=== PATIENT | female | born 1990 | race Caucasian/White ===

== ENCOUNTER 2017-05-25 12:09 | Emergency (ER) | payer OTHER ==
[2017-05-25] MEDS ORDERED: FLUORESCEIN SODIUM 0.6 MG/WRAP ONE (13:44)
[2017-05-25] MEDS ORDERED: TETRACAINE HCL 0.5% 2ML OPTH ONE (13:44)
--- NOTE | 2017-05-25 14:07 | EDPHYS ---
Physician Documentation [facility] Name: Alexa Sal Age: 26 yrs Sex: Female : 1990 Arrival Date: 05/25/2017 Time: 12:15 Bed 12 Private MD: Rolan Wolff HPI: 05/25 13:36 This 26 yrs old Female presents to ER via Ambulatory with complaints of eren Redness of Eye. 13:39 This 26 yrs old Female presents to ER via Ambulatory with complaints of eren Redness of Eye. 13:36 The patient is experiencing matting or discharge, pain, redness, tearing. Onset: The eren symptoms/episode began/occurred 3 day(s) ago. Duration: the symptoms are continuous. Aggravated by blinking, closing eye, Alleviated by nothing. Associated signs and symptoms: Pertinent positives: None. Pertinent negatives: None. Severity of symptoms: At their worst the symptoms were. The patient has not experienced similar symptoms in the past. CLAIM CLERK: 12:19 LMP 11/14/2016 tw2 Historical: - Allergies: 17:52 Toradol; iw - Immunization history:: Adult Immunizations up to date. - Family history:: not pertinent. - Social history:: Smoking status: Patient uses tobacco products. ROS: 13:36 Constitutional: Negative for fever, chills, and weight loss, ENT: Negative for injury, eren pain, and discharge, Neck: Negative for injury, pain, and swelling, Cardiovascular: Negative for chest pain, palpitations, and edema, Respiratory: Negative for shortness of breath, cough, wheezing, and pleuritic chest pain, Abdomen/GI: Negative for abdominal pain, nausea, vomiting, diarrhea, and constipation, Back: Negative for injury and pain, : Negative for injury, bleeding, discharge, and swelling, MS/Extremity: Negative for injury and deformity, Skin: Negative for injury, rash, and discoloration, Neuro: Negative for headache, weakness, numbness, tingling, and seizure, Psych: Negative for depression, anxiety, suicide ideation, homicidal ideation, and hallucinations, Allergy/Immunology: Negative for hives, rash, and allergies, Endocrine: Negative for neck swelling, polydipsia, polyuria, polyphagia, and marked weight changes, Hematologic/Lymphatic: Negative for swollen nodes, abnormal bleeding, and unusual bruising. 13:36 Eyes: Positive for discharge, matting, pain. Exam: 13:36 Constitutional: This is a well developed, well nourished patient who is awake, alert, eren and in no acute distress. Head/Face: Normocephalic, atraumatic. ENT: Nares patent. No nasal discharge, no septal abnormalities noted. Tympanic membranes are normal and external auditory canals are clear. Oropharynx with no redness, swelling, or masses, exudates, or evidence of obstruction, uvula midline. Mucous membranes moist. Neck: Trachea midline, no thyromegaly or masses palpated, and no cervical lymphadenopathy. Supple, full range of motion without nuchal rigidity, or vertebral point tenderness. No Meningismus. Chest/axilla: Normal chest wall appearance and motion. Nontender with no deformity. No lesions are appreciated. Cardiovascular: Regular rate and rhythm with a normal S1 and S2. No gallops, murmurs, or rubs. Normal PMI, no JVD. No pulse deficits. Respiratory: Lungs have equal breath sounds bilaterally, clear to auscultation and percussion. No rales, rhonchi or wheezes noted. No increased work of breathing, no retractions or nasal flaring. Abdomen/GI: Soft, non-tender, with normal bowel sounds. No distension or tympany. No guarding or rebound. No evidence of tenderness throughout. Back: No spinal tenderness. No costovertebral tenderness. Full range of motion. Female : Normal external genitalia. Skin: Warm, dry with normal turgor. Normal color with no rashes, no lesions, and no evidence of cellulitis. MS/ Extremity: Pulses equal, no cyanosis. Neurovascular intact. Full, normal range of motion. Neuro: Awake and alert, GCS 15, oriented to person, place, time, and situation. Cranial nerves II-XII grossly intact. Motor strength 5/5 in all extremities. Sensory grossly intact. Cerebellar exam normal. Normal gait. Psych: Awake, alert, with orientation to person, place and time. Behavior, mood, and affect are within normal limits. 13:36 Eyes: Periorbital structures: appear normal, Pupils: no acute changes, equal, round, and reactive to light and accomodation, Extraocular movements: intact throughout, Conjunctiva: injected, Corneas: are normal, Sclera: injected, Nystagmus: is not appreciated, no acute changes. 13:59 Eyes: Anterior chamber: normal, Lids and lashes: appear normal, on the right. [facility] Vital Signs: 12:19 BP 124 / 80; Pulse 82; Resp 17; Temp 98; Pulse Ox 99% on R/A; Weight 72.57 kg (R); tw2 Height 5 ft. 7 in. (170.18 cm) (R); Pain 6/10; 12:19 Body Mass Index 25.06 (72.57 kg, 170.18 cm) tw2 MDM: 12:39 Patient medically screened. [facility] 13:36 Data reviewed: vital signs, nurses notes. [facility] 05/25 13:36 Order name: Eye Tray; Complete Time: 13:45 [facility] 05/25 13:36 Order name: Fluoresene Opth strip; Complete Time: 13:45 [facility] Administered Medications: 14:00 Drug: Tetracaine Drops 0.5 % 1 drops Route: Ophthalmic; Site: right eye; iw 14:06 Not Given (Duplicate Order): Garamycin Ointment 0.3 % 0.5 inches Ophthalmic once; Right [facility] Eye 14:20 Drug: Tobramycin Ointment (0.3 %) 1 inches Route: Ophthalmic; Site: right eye; iw Disposition: 05/25/17 14:07 Discharged to Home. Impression: Conjunctivitis. - Condition is Stable. - Discharge Instructions: Conjunctivitis (Viral and Bacterial). - Prescriptions for Tylenol- Codeine #3 300-30 mg Oral Tablet - take 2 tablets by ORAL route every 6 hours As needed; 20 tablet. tobramycin 0.3 % Ophthalmic drops - instill 2 drop by OPHTHALMIC route every 4 hours; 10 milliliter. - Medication Reconciliation Form, Thank You Letter, Antibiotic Education, Prescription Opioid Use form. - Follow up: Private Physician; When: 2 - 3 days; Reason: Recheck today's complaints, Continuance of care, Re-evaluation by your physician. Follow up: Gissel Bal; When: 2 - 3 days; Reason: Recheck today's complaints, Re-evaluation by your physician. - Problem is new. - Symptoms have improved. Signatures: Rolan Luis MD MD cha Williams, Irene, RN RN iw
--- NOTE | 2017-05-25 14:07 | ER ---
Nurse's Notes [facility] Name: Alexa Sal Age: 26 yrs Sex: Female : 1990 Arrival Date: 05/25/2017 Time: 12:15 Bed 12 Private MD: Diagnosis: Conjunctivitis Presentation: 05/25 12:17 Presenting complaint: Patient states: about a week ago i had pink eye on the left, now tw2 it seems that it moved to the right, eye wanted me to see an detailer thought maybe my cornea could be scratched on the left, but now its my right eye and it feels like something is behind it, i am , 4 1/2 months. Transition of care: patient was not received from another setting of care. Onset of symptoms was May 25, 2017. Care prior to arrival: None. 12:17 Method Of Arrival: Ambulatory tw2 12:17 Acuity: SULEIMAN 4 tw2 Triage Assessment: 14:00 General: Appears in no apparent distress. iw 14:00 General: Behavior is calm. iw MARKETING SUPPORT ASSISTANT: 12:19 LMP 11/14/2016 tw2 Historical: - Allergies: 17:52 Toradol; iw - Immunization history:: Adult Immunizations up to date. - Family history:: not pertinent. - Social history:: Smoking status: Patient uses tobacco products. Screenin:00 Abuse screen: Denies threats or abuse. Denies injuries from another. Nutritional iw screening: No deficits noted. Tuberculosis screening: No symptoms or risk factors identified. Fall Risk None identified. Assessment: 14:00 General: Appears in no apparent distress. Behavior is calm, cooperative. Pain: iw Complains of pain in right eye. Neuro: Level of Consciousness is awake, alert, obeys commands, Oriented to person, place, time, situation, Moves all extremities. Cardiovascular: Patient's skin is warm and dry. Respiratory: Respiratory effort is even, unlabored. EENT: Sclera/Cornea are reddened in outer aspect of conjuctiva of right eye and inner aspect of conjuctiva of right eye. Derm: Skin is pink, warm \T\ dry. normal. Musculoskeletal: Range of motion: intact in all extremities. Vital Signs: 12:19 BP 124 / 80; Pulse 82; Resp 17; Temp 98; Pulse Ox 99% on R/A; Weight 72.57 kg (R); tw2 Height 5 ft. 7 in. (170.18 cm) (R); Pain 6/10; 12:19 Body Mass Index 25.06 (72.57 kg, 170.18 cm) tw2 ED Course: 12:15 Patient arrived in ED. mr 12:19 Triage completed. tw2 12:39 Rolan Luis MD is Attending Physician. [facility] 13:17 Addie Pena, RN is Primary Nurse. iw 14:00 Arm band placed on. iw 14:00 Patient has correct armband on for positive identification. iw 14:07 Gissel Bal MD is Referral Physician. [facility] 14:15 Assist provider with eye exam of right eye. using fluorescein stain, Performed by Rolan Luis MD Patient tolerated well. Patient did not have IV access during this emergency room visit. Administered Medications: 14:00 Drug: Tetracaine Drops 0.5 % 1 drops Route: Ophthalmic; Site: right eye; iw 14:06 Not Given (Duplicate Order): Garamycin Ointment 0.3 % 0.5 inches Ophthalmic once; Right eren Eye 14:20 Drug: Tobramycin Ointment (0.3 %) 1 inches Route: Ophthalmic; Site: right eye; iw Outcome: 14:07 Discharge ordered by . [facility] 14:26 Discharged to home ambulatory, with family. 14:26 Condition: good 14:26 Discharge instructions given to patient, Instructed on discharge instructions, follow up and referral plans. medication usage, Demonstrated understanding of instructions, follow-up care, medications, Prescriptions given X 1. 14:26 Patient left the ED. iw Signatures: Rolan Luis MD MD cha Rivera, Maria mr Addie Pena, RN RN Lien Awad RN RN tw2
[2017-05-25] MEDS ORDERED: TOBRAMYCIN SULF 0.3% OPTH OINT OPTH ONE (14:15)
== END 2017-05-25 14:26 | disposition home or self-care (01) ==
LOC: ER 12:09
DX: H10.9 Unspecified conjunctivitis (principal); Z88.6 Allergy status to analgesic agent
CPT/HCPCS: 99283

== ENCOUNTER 2019-11-27 13:05 | Emergency (ER) | payer OTHER, SELFPAY ==
--- OUTSIDE RECORDS SUMMARY | 2019-11-27 13:12 | XMS REPORT | Clinical Summary ---
:1990 Author Organization [facility] Distr ict Address [facility] [place] [address] Care Team Providers Name Role Phone MD Juan Primary Care Provider Allergies No Known Allergies Medications Medication Sig Dispensed Refills Start Date End Date Status vitamin Take by mouth. 0 Active tablet FLUoxetine (PROZAC) Take by mouth. 0 09/24/2017 Active 20 mg capsule terconazole (TERAZOL Insert 0 09/22/2017 Active 7) 0.4 % vaginal vaginally. cream methadone (DOLOPHINE) Take 20 mg by 0 Active 10 mg tablet mouth daily. guaiFENesin SR Take 1 tablet 20 tablet 0 10/13/2017 Active (MUCINEX) 600 mg by mouth 2 extended release times daily. tabletIndications: Common cold throat (CEPACOL SORE 1 Lozenge by 18 Lozenge 0 10/13/2017 Active THROAT) 15-3.6 mg Mucous Membrane LozgIndications: route as needed Common cold for Pain. ibuprofen (MOTRIN) Take 1 tablet 60 tablet 0 10/24/2017 Active 800 mg by mouth every tabletIndications: 8 hours as Vaginal delivery needed for Pain. naproxen (NAPROSYN) Take 1 tablet 30 tablet 0 09/19/2019 Active 500 mg by mouth 2 tabletIndications: times daily Low back pain with (with meals). bilateral sciatica, unspecified back pain laterality, unspecified chronicity metroNIDAZOLE Take 1 tablet 14 tablet 0 09/19/2019 09/26/2019 (FLAGYL) 500 mg by mouth 2 tabletIndications: times daily for Vaginitis and 7 days. vulvovaginitis fluconazole Take 1 tablet 1 tablet 0 09/19/2019 09/19/2019 Ex pired (DIFLUCAN) 150 mg by mouth once tabletIndications: for 1 dose. 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 018 Encounters Date Type Specialty Care Team Description 10/03/2019 Telephonic Encounter Family Practice Meng Martinez, Armando reen for sexually MD transmitted dis eases (Primary Dx) 09/19/2019 Telephonic Encounter Family Practice Nusrat Milton Vag initis and vulvovaginitis (Primary Dx); R, PA Screen for sexually transmitted diseases ; Meng Martinez, Low back pain with bilateral sciatica, unspecified back pain laterality, unspecified chronicity 09/19/2019 Orders Only Family Practice Meng Martinez MD after 11/26/2018 Family History Medical History Relation Name Comments ADD / ADHD Daughter Diabetes Maternal Grandfather Hypertension Maternal Grandmother Stroke Maternal Grandmother Psychiatry Mother Alcohol/Drug Paternal Grandfather Alcohol/Drug Paternal Grandmother Psychiatry Sister Relation Name Status Comments Daughter Alive Father Alive Maternal Grandfather Alive Maternal Grandmother Alive Mother Alive Paternal Grandfather Paternal Grandmother Sister Alive Social History Tobacco Use Types Packs/Day Years Used Date Current Every Day Smoker Cigarettes Smokeless Tobacco: Never Used Tobacco Cessation: Ready to Quit: No; Co unseling Given: No Alcohol Use Drinks/Week oz/Week Comments No Food Insecurity Answer Date Recorded Within the past 12 months, you worried that your food would Never true 10/13/2017 run out before you got money to buy more. Within the past 12 months, the food you bought just didn't N ever true 10/13/2017 last and you didn't have money to get more. Sex Assigned at Date Recorded Not on file Job Start Date Occupation Industry Not on file Not on file Not on file Travel History Travel Start Travel End No recent travel history available. Last Filed Vital Signs Not on file Plan of Treatment Health Maintenance Due Date Last Done Comments IMM Influenza Seasonal Nov to April (>/= 19 yrs) 11/16/2019 Cervical Cancer Scrn (3 Yrs) 05/21/2020 05/21/2017 Procedures Procedure Name Priority Date/Time Associated Diagnosis Comme nts CHLAM/GC DNA AMPLI Routine 10/17/2019 1:50 PM Screen for sexu ally Results for this CDT transmitted diseases procedu re are in the results section. HEPATITIS PANEL Routine 10/17/2019 10:30 AM Screen for sexuall y Results for this CDT transmitted diseases procedu re are in the results section. SYPHILIS SCREEN FOR Routine 10/17/2019 10:30 AM Screen for sex ually Results for this INFECTION CDT transmitted diseases procedu re are in the results section. HIV AG/AB COMBO Routine 10/17/2019 10:30 AM Screen for sexuall y Results for this ROUTINE SCREENING CDT transmitted diseases pr ocedure are in the results section. after 11/26/2018 Results Chlam/Gc DNA Ampli (10/17/2019 1:50 PM CDT) Pathologist Sig nature Chlamydia trachomatis Negative Negative [facility] N. gonorrhoeae Negative Negative [facility] Specimen Urine - Voided, urine Narrative Performed At This test utilizes [employer] Aptima Combo 2 Assay for ta rget [facility] amplification of rRNA for the qualitative detection of Chlamydia trachomatis and Neisseria gonorrhoeae. Performing Organization Address [facility] Phone Number [facility] [address] [place] [address] Syphilis Screen for Infection (10/17/2019 10:30 AM CDT) Pathologist Sig nature TPA Negative Negative, Equivocal [facility] Final Report Negative Negative [facility] Specimen Blood Performing Organization Address [facility] Phone Number [facility] [address] [place] [address] [phone] HIV Ag/Ab Combo Routine Screening (10/17/2019 10:30 AM CDT) Pathologist Sig nature HIV Ag/Ab Combo Negative Negative [facility] Specimen Blood Performing Organization Address [facility] Phone Number [facility] [address] [place] [address] Hepatitis Panel (10/17/2019 10:30 AM CDT) Pathologist Sig nature Hepatitis C Virus (HCV) Negative Negative [facility] RY Antibody Hep B Surface Ag Negative Negative [facility] Hep A Vir Ab IgM Negative Negative [facility] Hep B Core Ab IgM Negative Negative [facility] Specimen Blood Performing Organization Address City/State/Zipcode Phone Number [facility] [address] [place] [address] after 11/26/2018 Insurance Payer Benefit Plan / Subscriber ID Effective Dates Phone Addre ss Type Group HOMELESS MOJGAN HOMELESS MOJGAN xxxxxxx 2019- [phone] 25 25 [address] [place] [address] [phone] (Work) Alexa Brewer Self 1990 [address] (Home) [place], [place] [phone] (Work) Advance Directives Code Status Date Activated Date Inactivated Comments Full Code 10/22/2017 11:10 AM 10/24/2017 5:40 PM Full Code 10/21/2017 4:25 PM 10/22/2017 11:10 AM Full Code 10/19/2017 7:31 PM 10/20/2017 12:09 AM
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
--- OUTSIDE RECORDS SUMMARY | 2019-11-27 13:13 | XMS REPORT ---
:1990 Author Name Messaging, Secure Address Unavailable Unavailable , Care Team Providers Name Role Phone Lawera, Morena Unavailable [phone] PROBLEMS Condition Status Date Provider Notes Panic attack active Catherine Drake Plant dermatitis completed - Catherine Drake Depression/anxiety active Morena Lawera ENCOUNTERS Date Type Provider Location Encounter Diagn osis - Ambulatory Morena Lawera UNK Encounter Morena Lawera - Ambulatory Morena Lawera UNK Encounter Morena Lawera Vandana Kristina Betancourt - Ambulatory Yamisela UNK Encounter Catherine Steven MedAdherence - Ambulatory Catherine ortega ermatitisPanic Encounter Vidal attack - Ambulatory Morena Lawera UNK Encounter Morena Lawera Arelis Trujillo MedAdherence, - Ambulatory Jailene Erika Rene UNK Encounter Alexis Mendez - Ambulatory Morena Lawera UNK Encounter Morena Lawera LinkLogic - Ambulatory Morena Lawera UNK Encounter Morena Lawera Shanna Shea MedAdherence Jailyn Becerra MedAdherence Arelis Trujillo MedAdherence, - Ambulatory Morena Lawera UNK Encounter Morena Lawera - Ambulatory Morena Lawera UNK Encounter Morena Lawera Jailyn Becerra MedAdherence Arpit Steven MedAdherence - Ambulatory Morena Lawera UNK Encounter Morena Lawera Shanna Shea MedAdherence - Ambulatory Mary Becki UNK Encounter - Ambulatory Morena Lawera UNK Encounter Morena Lawera Mary Chavezanda - Ambulatory Morena Lawera UNK Encounter Morena Lawera - Ambulatory Morena Lawera UNK Encounter Morena Lawera - Ambulatory Morena Lawera UNK Encounter Morena Lawera Arelis Trujillo MedAdherence, Mary Connell - Ambulatory Morena Lawera UNK Encounter Morena Lawera - Ambulatory Morena Lawera UNK Encounter Morena Lawera - Ambulatory Morena Lawera Plant derm atitis Encounter Morena Lawera Richard Johnson - Ambulatory Gilma Noyola UNK Encounter - Ambulatory Edgard Espinoza UNK Encounter - Ambulatory Edgard Espinoza UNK Encounter Elli Brito - Ambulatory Morena Lawera UNK Encounter Morena Lawera - Ambulatory Melissa Mares UNK Encounter - Ambulatory [facility] Care Coordination UNK Encounter Desktop Morena Lawera Morena Lawera Jaiden Hall Ap - Ambulatory Farrukh Campbell UNK Encounter - Ambulatory Morena Lawera UNK Encounter Morena Lawera - Ambulatory L[facility] Care Coordination UNK Encounter Desktop Farrukh Campbell Morena Lawera Morena Lawera Caryl Shree Noyola - Ambulatory Farrukh Campbell UNK Encounter - Ambulatory Morena Lawera UNK Encounter Morena Lawera - Ambulatory Morena Lawera UNK Encounter Morena Lawera - Ambulatory Morena Lawera UNK Encounter Morena Lawera Farrukh Campbell - Ambulatory Morena Lawera UNK Encounter Morena Lawera LinkLogic - Ambulatory Morena Lawera UNK Encounter Morena Lawera - Ambulatory Morena Lawera Depression /anxiety Encounter Morena Lawera Melissa Cumminsados VITAL SIGNS Date Observation Value Provider blood pressure, diastolic 79 mm[Hg] James Betancourt " blood pressure, systolic 118 mm[Hg] Jonatan Betancourt " pulse rate 82 /min Jonatan Betancourt " weight E&M 195 lbs. Jonatan Betancourt " weight in kilograms E&M 88.64 kg Jonatan Betancourt " temperature E&M 98.4 [degF] Jonatan Betancourt " oxygen saturation, oximetry 98 % Savanah Betancourt " method used to obtain blood pressure automatic Jonatan Betancourt " Blood Pressure Position 01 sitting Anthony Betancourt " blood pressure, site #1 left arm Jonatan Betancourt " height E&M 67 [in_i] Jonatan Betancourt " height in centimeters E&M 170.18 cm James Betancourt blood pressure, diastolic 70 mm[Hg] Patito Cartwright " blood pressure, systolic 121 mm[Hg] Mar a Gabbie " temperature E&M 98.0 [degF] Carolina Arambul a " pulse rate 96 /min Alysa Arambul a " oxygen saturation, oximetry 98 % Shay jose alberto Martinula " weight E&M 180.13 lbs. Alysa Arambul a " weight in kilograms E&M 81.88 kg Alysa Gabbie " method used to obtain blood pressure manual Alysa Martinula " Blood Pressure Position 01 sitting Pam zahida Cartwright " blood pressure, site #1 left arm Alysa Gabbie " temperature site oral Alysa Arambu la " height E&M 67 [in_i] Alysa Arambul a " height in centimeters E&M 170.18 cm Patito Martinula oxygen saturation, oximetry 100 % Jaim e Espinoza " blood pressure, diastolic 94 mm[Hg] Edgard Espinoza " blood pressure, systolic 136 mm[Hg] Edgard G ranados " respiratory rate E&M 18 /min Edagrd Bryan dos " pulse rate 108 /min Edgard Espinoza " temperature E&M 98.4 [degF] Edgard Espinoza " method used to obtain blood pressure automatic Edgard Espinoza " Blood Pressure Position 01 sitting Edgard Espinoza " blood pressure, site #1 left arm Edgard Gr anados " temperature site oral Edgard Espinoza " weight E&M 172.13 lbs. Edgard Espinoza " weight in kilograms E&M 78.24 kg Edgard Gr anados " height E&M 67 [in_i] Edgard Espinoza " height in centimeters E&M 170.18 cm Edgard Espinoza Allergies No Known Allergy Information REASON FOR REFERRAL No Information Available RESULTS Date Observation Value Provider Reference Interpretation Loc ation Range / HCG, urine, negative Morena 12 semiquantitative Lawera HISTORY OF IMMUNIZATIONS No Information Available HISTORY OF MEDICATION USE Medication Instructions Dates Provider Comments CLONAZEPAM 1 MG ORAL 0.5 - 1 By Mouth every Catherine munguia TABLET 12 hours as needed for anxiety MEDROL 4 MG ORAL use as directed - Catherine Drake TABLET THERAPY PACK CLONAZEPAM 0.5 MG 1 By Mouth Twice a Day - Morena Henderson ORAL TABLET LEXAPRO 20 MG ORAL 1 or half tab By Mouth Morena Cobian awera TABLET Every Day SOCIAL HISTORY Date Observation Value Provider social history reviewed E&M reviewed today Savanah Betancourt " sexual orientation Heterosexual Jonatandillan syed " if the patient is using/has No Savanah dillan Betancourt used a vaping item, Current, Former, Never Used, Not asked " smoking status never smoker Jonatan Betancourt " Exercise Program Referral T James Betancourt " Weight Management T Jonatan sue Counseling Provided " Nutrition intervention T Jonatan roe social history reviewed E&M reviewed today Arsen Drake time of call 04/26/2019 12:33 PM Marcia galindo social history reviewed E&M reviewed today Laurita Cartwright " drug use, illicit Previously Carolina Aramb rosetta " alcohol use Previously Carolina Arambul a " sexual orientation Heterosexual Carolina Flip bula " is there any chance that No Mar a Gabbie you could be ? " passive cigarette smoke No Carolina Gabbie exposure " smoking status never smoker Carolina Arambul a " Exercise Program Referral T Patito sahni Gabbie " Weight Management T Carolina Aramb rosetta Counseling Provided " Nutrition intervention T Carolina Gabbie time of call 01/04/2019 3:58 PM Maira Roldan res time of call 12/27/2017 2:14 PM Jaiden carmicheal time of call 12/27/2017 1:20 PM Caryl Noyola sexual orientation Heterosexual Edgard Martinez s " sex at Female Edgard Espinoza " Occupation #1 Unemployed Edgardelan Espinoza " patient considered to be No Edgard G bennyados homeless " drug use, illicit Previously Edgard Espinoza " alcohol use Previously Edgard Espinoza " is there any chance that No Edgard G ranados you could be ? " passive cigarette smoke No Edgard Gr anados exposure " smoking status current every day smoker Edgard Jillian radha " Exercise Program Referral T Edgard Espinoza " Weight Management T Edgard Espinoza Counseling Provided " Nutrition intervention T Edgard cardenas FUNCTIONAL STATUS No Information Available MENTAL STATUS Date Observation Value Provider assessment of judgment and intact Sean diane Lawera insight E&M " mental status examination: oriented to time, corey ce, Morena Lawera orientation E&M and person " assessment of mood and affect no depression, anx iety, Morena Lawera E&M or agitation " Generalized Anxiety Disorder 0 Cheng marleen Betancourt Questionnaire - Question 2 " Generalized Anxiety Disorder 0 Cheng marleen Betancourt Questionnaire - Question 1 assessment of judgment and intact Jeann ie Vidal insight E&M " mental status examination: normal mental status, Catherine Vidal orientation E&M oriented to person, place and time " assessment of mood and affect no depression, anx iety, Catherine Vidal E&M or agitation assessment of judgment and intact Sean diane Lawera insight E&M " mental status examination: oriented to time, corey ce, Morena Lawera orientation E&M and person " assessment of mood and affect no depression, anx iety, Morena Lawera E&M or agitation " Generalized Anxiety Disorder 0 Car olina Gabbie Questionnaire - Question 2 " Generalized Anxiety Disorder 0 Car olina Gabbie Questionnaire - Question 1 assessment of judgment and intact Sean diane Lawera insight E&M " mental status examination: oriented to time, corey ce, Morena Lawera orientation E&M and person " assessment of mood and affect no depression, anx iety, Morena Lawera E&M or agitation " Generalized Anxiety Disorder 3 Satnam me Espinoza Questionnaire - Question 2 " Generalized Anxiety Disorder 3 Satnam me Espinoza Questionnaire - Question 1 MEDICAL EQUIPMENT No Information Available FAMILY HISTORY No Information Available INSURANCE PROVIDERS No Information Available ADVANCE DIRECTIVES No Information Available TREATMENT PLAN Date Name TSH Rfx on Abnormal to Free T4 Comp. Metabolic Panel (14) CBC With Differential/Platel et Est Patient Exp Problem - 99 213 Behavioral Health - Psychiat ry Est Patient Exp Problem - 99 213 Est Patient Exp Problem - 99 213 Behavioral Health - Psychiat ry Urinalysis - - In House Behavioral Health - Psychiat ry New Patient Detailed - 10684 HISTORY OF PROCEDURES Procedure Date Procedure Name Provider Procedure Notes Status Urinalysis - - Morena Woodard completed In House GOALS No Information Available HEALTH CONCERNS No Information Available
--- OUTSIDE RECORDS SUMMARY | 2019-11-27 13:14 | XMS REPORT | Continuity of Care Document ---
:1990 Author Organization [facility] t Address [address] [place] [address] Care Team Providers Name Role Phone Asked, Pcp Primary Care Physician Unavailable Lawleyda Attending Clinician [phone] Shira Attending Clinician [phone] Alex Attending Clinician Unavailable Serafin Attending Clinician Unavailable Shira Attending Clinician Unavailable Vidal Attending Clinician [phone] Tenisha DaughertyAdherharleen Attending Clinician Unavailable Cassandra Isbell, Attending Clinician Unavailable Juan PAUL Attending Clinician Lilo Vasques Attending Clinician Jaime Adams MD Attending Clinician Erika Attending Clinician Unavailable Alexis Attending Clinician Unavailable James Attending Clinician Unavailable Andrea Attending Clinician Unavailable Shabbir MedAdherharleen Attending Clinician Unavailable Hernan MedAdherharleen Attending Clinician [phone] Becki Attending Clinician Unavailable Syeda Attending Clinician [phone] Gabbie Attending Clinician Unavailable Dennys Attending Clinician Unavailable Kenna Attending Clinician [phone] Mango Flores Attending Clinician Unavailable Jillian Brito Attending Clinician Unavailable Vishnu Attending Clinician Unavailable Desktop Attending Clinician [phone] Isabel De Souza Attending Clinician Unavailable Adrian Attending Clinician Unavailable Shree Noyola Attending Clinician Unavailable Vidal Unavailable [phone] Lawera Unavailable [phone] Payers Payer Name Policy Type Policy Number Effective Date Expiration Date S ource HOMELESS xxxxxxx 2019 2020 Russell GRANTHOMELESS 00:00:00 23:59:59 Health [id number] [place] [address] Problems Condition Condition Condition Status Onset Resolution Last Treating Co mments Source Name Details Category Date Date Treatment Clinician Date Panic Condition Active 2019-10-24 Vidal, Leg acy attack 10-23 09:50:49 Catherine Browne 00:00: ty 00 Health Depression Condition Active 2017-022019-10-24 Lawera, Legacy /anxiety 02-19 09:44:54 Morena Whittaker mmuni 00:00: ty 00 Health Homeless Homeless Disease Active Isha mederos 11-12 Health 00:00: 00 Tobacco Tobacco Disease Active Wells use use 10-23 Health disorder disorder 00:00: 00 History of History of Disease Active H arris chronic chronic 10-23 Health pain pain 00:00: 00 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 Only! History of Past Illness Condition Condition Condition Status Onset Resolution Last Treating Co mments Source Name Details Category Date Date Treatment Clinician Date Plant Condition Inactiv 2018-022019-10-24 2019-10-24 Vidal, Legacy dermatitis e -12 00:00:00 09:50:49 Catherine Ireland ommunrasheed 00:00: ty 00 Health Allergies, Adverse Reactions, Alerts Allergy Allergy Status Severity Reaction(s) Onset Inactive Treating Comm ents Source Name Type Date Date Clinician No Known DA Active U [facility] Allergie 2-10 Clear s 00:00: Rinaldi 00 [facility] Family History Family Member Diagnosis Comments Start Date Stop Date Source Maternal grandfather Diabetes [place] Maternal grandfather Hypertension [place] [place] Maternal grandfather Diabetes [facility] Maternal grandmother Hypertension [place] Maternal grandmother Stroke [place] Maternal grandmother Hypertension [facility] Maternal grandmother Stroke [facility] Natural mother Hypertension [place] [facility] Natural mother Psychiatry [facility] Natural daughter ADD / ADHD [facility] Paternal grandfather Alcohol/Drug [facility] Paternal grandmother Alcohol/Drug [facility] Natural sister Psychiatry [facility] Social History Social Habit Start Date Stop Date Quantity Comments Source History of tobacco Cigarette Smoker [facility] use Sex Assigned At [facility] alth sexual orientation 2019-11-24 2019-11-24 Heterosexual [facility] 14:04:02 14:04:02 Health social history 2019-11-24 2019-11-24 reviewed today [facility] reviewed E&M 14:04:02 14:04:02 Health if the patient is 2019-11-24 2019-11-24 No [facility] using/has used a 14:04:02 14:04:02 Health vaping item, Current, Former, Never Used, Not asked time of call 2019-04-26 2019-04-26 04/26/2019 12:33 PM Leg acy Community 12:33:03 12:33:03 Health drug use, illicit 2019-01-26 2019-01-26 Previously [facility] Community 09:38:16 09:38:16 Health alcohol use 2019-01-26 2019-01-26 Previously [facility] Commun ity 09:38:16 09:38:16 Health is there any 2019-01-26 2019-01-26 No Legacy Commu nity chance that you 09:38:16 09:38:16 Health could be ? Alcohol intake 2018-07-20 2018-07-20 Current non-drinker H arris Health 00:00:00 00:00:00 of alcohol (finding) Cigarettes smoked 2018-01-11 2018-01-11 [place] current (pack per 00:00:00 00:00:[address] ) - Reported Tobacco use and 2018-01-11 2018-01-11 Never used [place] exposure 00:00:00 00:00:00 [facility] sex at 2017-12-20 2017-12-20 Female [facility] Commu nity 11:44:29 11:44:29 Health Occupation #1 2017-12-20 2017-12-20 Unemployed [facility] Comm unity 11:44:29 11:44:29 Health patient considered 2017-12-20 2017-12-20 No Legacy [facility] to be homeless 11:44:29 11:44:29 Health History [facility] Food 2017-10-13 2017-10-13 1 [facility] Worry 00:00:00 00:00:00 History [facility] Food 2017-10-13 2017-10-13 1 [facility] Scarcity 00:00:00 00:00:00 Smoking Status Start Date Stop Date Source Never smoked tobacco (finding) L [facility] Current every day smoker 2018-07-20 00:00:00 [facility] Medications Ordered Filled Start Stop Current Ordering Indication Dosage Frequency Signature Comments Components Source Medication Medication Date Date Medication? Clinician (SIG) Name Name naproxen Yes Low back 500mg Take 1 [facility] (NAPROSYN) 09-18 pain with tablet by Health 500 mg 00:00: bilateral mouth 2 tablet 00 sciatica, times unspecified daily back pain (with laterality, meals). unspecified chronicity metroNIDAZO 2019- No Vaginitis 500mg Q.5D Take 1 Russell MORALES (FLAGYL) 09-18 and tablet by Delio cloud 500 mg 00:00: 23:59 vulvovagini mouth 2 tablet 00 :00 tis times daily for 7 days. fluconazole 2020- No Vaginitis 150mg Take 1 [place] (DIFLUCAN) 09-18 and tablet by [facility] 150 mg 00:00: 23:59 vulvovagini mouth once tablet 00 :00 tis for 1 dose. (CLONAZEPAM 2018-02 Yes Morena 1{Table 2xD 0.5 - 1 By Legacy ) 1 MG TABS 2-12 Lawera t} Mouth Commu ni 00:00: every 12 ty 00 hours as Health needed for anxiety MEDROL 2018-02 2020- No Morena use as [place] (METHYLPRED -10-23 Lawera directed C ommuni NISOLONE) 4 00:00: 00:00 ty MG TBPK 00 :00 Health LEXAPRO 2017-02 Yes Morena 1.5{Tab 1xD 1 or half Legacy (ESCITALOPR 1-05 Lawera let} tab By Comm uni AM OXALATE) 00:00: Mouth ty 20 MG TABS 00 Every Day Heal th (CLONAZEPAM 2017-02 2019- No 1{Table 2xD 1 By Mouth [facility] ) 0.5 MG 1-05 12-12 t} Twice a Communi TABS 00:00: 00:00 Day ty 00 :00 Health Yes Take by Wells vitamin 9-09 mouth. Health tablet 15:35: 25 methadone Yes 20mg QD Take 20 mg [facility] (DOLOPHINE) 10-24 by mouth Heal th 10 mg 15:35: daily. tablet 25 ibuprofen Yes Vaginal 800mg Take 1 [facility] [facility] (MOTRIN) 9 delivery tablet by alth 800 mg 00:00: mouth tablet 00 every 8 hours as needed for Pain. guaiFENesin Yes Common cold 600mg Q.5D Take 1 Wells SR 8-29 tablet by [facility] (MUCINEX) 00:00: mouth 2 600 mg 00 times extended daily. release tablet throat Yes Common cold 1{lozen 1 Lozenge Wells (CEPACOL 8-29 ge} by [facility] SORE 00:00: Membrane THROAT) 00 route as 15-3.6 mg needed for Lozg Pain. FLUoxetine Yes Take by [facility] is (PROZAC) 20 8-10 mouth. Health mg capsule 00:00: 00 terconazole Yes Insert [facility] is (TERAZOL 7) 808 vaginally. Delio alth 0.4 % 00:00: vaginal 00 cream Yes 1{tbl} QD Take 1 [place] vit,calc76- 8-07 tablet by Met britton iron-folic 23:32: mouth st 29 mg iron- 13 daily. 1 mg tablet per tablet Vital Signs Vital Name Observation Time Observation Value Comments Source blood pressure, 2019-11-24 14:04:02 79 mm[facility]Hg[facility] blood pressure, 2019-11-24 14:04:02 118 mm[Hg] [facility] pulse rate 2019-11-24 14:04:02 82 [facility] weight [facility]&M 2019-11-24 14:04:02 195 [lb_av] [facility] in kilograms 2019-11-24 14:04:02 88.64 kg L [facility] E& Health temperature E&M 2019-11-24 14:04:02 98.4 [degF] [facility] oxygen saturation, 2019-11-24 14:04:02 98 % [facility] height in 2019-11-24 14:04:02 170.18 [facility] E&M Health Systolic blood 2019-08-24 03:20:00 115 mm[Hg] [place] pressure Diastolic blood 2019-08-24 03:20:00 53 mm[Hg] [place] pressure Heart rate 2019-08-24 03:20:00 98 /min [place] [place] Respiratory rate 2019-08-24 03:20:00 19 /min [place] Oxygen saturation in 2019-08-24 03:20:00 100 /min [place] [place] Arterial blood by Pulse oximetry Body temperature 2019-08-23 21:55:00 36.67 Sarah [place] Body height 2019-08-23 21:55:00 170.2 cm [place] [place] Body weight 2019-08-23 21:55:00 78.019 kg [place] [facility] BMI 2019-08-23 21:55:00 26.94 kg/m2 [place] [facility] [place] blood pressure, 2019-01-26 09:38:16 70 mm[Hg] Legac [facility] diastolic Health blood pressure, 2019-01-26 09:38:16 121 mm[Hg] Leg[facility] systolic Health temperature E&M 2019-01-26 09:38:16 98.0 [degF] Leg[facility] Health pulse rate 2019-01-26 09:38:16 96 /min [facility] oxygen saturation, 2019-01-26 09:38:16 98 % [facility] Health weight E&M 2019-01-26 09:38:16 180.13 [lb_av] [facility] weight in kilograms 2019-01-26 09:38:16 81.88 kg [facility] E& Health temperature site 2019-01-26 09:38:16 oral Lega [facility] Health height in 2019-01-26 09:38:16 170.18 cm [facility] centimeters E&M Health oxygen saturation, 2017-12-20 11:44:29 100 % [facility] blood pressure, 2017-12-20 11:44:29 94 mm[Hg] Leg[facility] diastolic Health blood pressure, 2017-12-20 11:44:29 136 mm[Hg] Legac y [facility] systolic Health respiratory rate E&M 2017-12-20 11:44:29 18 /min [facility] pulse rate 2017-12-20 11:44:29 108 /min [facility] Health temperature E&M 2017-12-20 11:44:29 98.4 [degF] [facility] temperature site 2017-12-20 11:44:29 oral Lega cy [facility] Health weight E&M 2017-12-20 11:44:29 172.13 [lb_av] [facility] weight in kilograms 2017-12-20 11:44:29 78.24 kg L [facility] E&M Health height in 2017-12-20 11:44:29 170.18 cm [facility] centimeters E[facility]M Health Procedures Procedure Date / Time Performing Clinician Source Performed CHLAM/GC DNA AMPLI 2019-10-17 13:50:00 Meng Martinez alth HIV AG/AB COMBO ROUTINE 2019-10-17 10:30:00 Mneg Martinez Health SCREENING SYPHILIS SCREEN FOR 2019-10-17 10:30:00 Meng Martinez ealth INFECTION HEPATITIS PANEL 2019-10-17 10:30:00 Meng Martinez h CREATINE KINASE, TOTAL 2019-08-23 22:48:00 Maruilio Adams (CPK) Jaime HC COMPLETE BLD COUNT 2019-08-23 22:48:00 Maurilio Adams W/AUTO DIFF Jaime COMPREHENSIVE METABOLIC 2019-08-23 22:48:00 Napoleon Adams PANEL Jaime T4, FREE 2019-08-23 22:48:00 Maurilio Adamsist Jaime THYROID STIMULATING 2019-08-23 22:48:00 Maurilio Adams HORMONE Jaime ACETAMINOPHEN LEVEL 2019-08-23 22:48:00 Maurilio Adamsist Jaime SALICYLATE LEVEL 2019-08-23 22:48:00 Maurilio Adams on [facility] Jaime ESTIMATED GFR 2019-08-23 22:48:00 Maurilio Adams Jaime URINE CULTURE 2019-08-23 22:01:00 Maurilio Adams Jaime CHLAMYDIA GONORRHOEAE 2019-08-23 22:01:00 Maurilio Adams AND TRICHOMONAS PANEL Jaime URINALYSIS SCREEN AND 2019-08-23 22:01:00 Maurilio Adams MICROSCOPY, WITH REFLEX Jiame TO CULTURE URINE DRUGS OF ABUSE 2019-08-23 22:01:00 Maurilio Adams SCREEN Jaime HCG QUALITATIVE, URINE 2019-08-23 22:01:00 Maurilio Adams SCREEN Jaime Urinalysis - - 2019-01-26 10:11:36 Morena Woodard [facility] In House Health Plan of Care Planned Activity Planned Date Details Comments Source Future Scheduled 2020-05-21 Screening for [facility] Test 00:00:00 malignant neoplasm of cervix (procedure) [code = 645198352] Future Scheduled 2019-11-16 IMM Influenza [facility] Hea [facility]th Test 00:00:00 Seasonal Oct to March (>/= 19 yrs) [code = IMM Influenza Seasonal Oct to April (>/= 19 yrs)] Future Scheduled 2019-09-16 INFLUENZA VACCINE [place] [facility] Test 00:00:00 [code = INFLUENZA VACCINE] Future Scheduled 2009 Screening for [place] Id thodist Test 00:00:00 malignant neoplasm of cervix (procedure) [code = 552717528] Encounters Start End Encounter Admission Attending Care Care Encounter Source Date/Time Date/Time Type Type Clinicians Facility Department ID 2017-10-21 Inpatient [facility] [id number] H arris 15:24:55 Health 2019-11-24 2019-11-24 Office MATT Woodard Encounter/ Legacy 00:00:00 00:00:00 Visit Morena [id number] [place] [id number] Health 2019-11-24 2019-11-24 Office Morena Woodard [facility] Encounter/ Legacy 00:00:00 00:00:00 Visit Vandana Silva [id number] Kristina Greenberg [id number] Jonatan Rico [facility] 2019-11-17 2019-11-17 Office Shira Tracychantal BEJARANOH [facility] En counter/ Legacy 00:00:00 00:00:00 Visit Catherine Drake [id number] Tenisha MedAdherence, Arpit [id number] Health 2019-10-24 2019-10-24 Office MTAT Drake [facility] Encounter/ Legacy 00:00:00 00:00:00 Visit Catherine [id number] [facility] rita [id number] Health 2019-10-16 2019-10-16 Office LawMorena crabtree [facility] Encounter/ Legacy 00:00:00 00:00:00 Visit Cassandra MedAdherence,, Arelis [id number] [facility] [id number] [facility] 2019-08-23 2019-08-24 Emergency DE BECKER, [facility] [id number] [place] 00:00:00 00:00:00 MAURILIO [facility] 2019-04-26 2019-04-26 Office Jailene James [facility] Enco unter/ Legacy 00:00:00 00:00:00 Visit Edgard Espinoza [id number] [facility] Marcia Ramirez [id number] Marcia Mendez [facility] 2019-03-16 2019-03-16 Office MATT Woodard Encounter/ Legacy 00:00:00 00:00:00 Visit Morena [id number] [facility] [id number] [facility] 2019-03-16 2019-03-16 Office Morena Woodard [facility] Encounter/ Legacy 00:00:00 00:00:00 Visit Shabbir DaughertyAdherenceShanna [id number] [facility] Hernan MedAdherenceJailyn [id number] Cassandra MedAdherence,, Arelis Health 2019-03-16 2019-03-16 Office MATT Woodard [facility] Encounter/ Legacy 00:00:00 00:00:00 Visit Morena [id number] [facility] [id number] Health 2019-03-15 2019-03-15 Office Morena Woodard [facility] Encounter/ Legacy 00:00:00 00:00:00 Visit Hernan DaughertyAdherenceJailyn [id number] [facility] Tenisha DaughertyAdherArpit canseco 963674 ty Health 2019-03-13 2019-03-13 Office Morena Woodrad LC Encounter/ Legacy 00:00:00 00:00:00 Visit Shabbir DaughertyAdherenceShanna [id number] [facility] 736171 ty Health 2019-03-10 2019-03-10 Office MATT Connell Encounter / Legacy 00:00:00 00:00:00 Visit Mary [id number] ommuni 965334 ty Health 2019-03-09 2019-03-09 Office Morena Woodard LC Encounter/ Legacy 00:00:00 00:00:00 Visit Mary Connell [id number] [facility] 601440 ty Health 2019-03-09 2019-03-09 Office MATT Woodard LC Encounter/ Legacy 00:00:00 00:00:00 Visit Morena [id number] [facility] 610035 ty Health 2019-03-09 2019-03-09 Office LawCARLEE crabtree LC Encounter/ Legacy 00:00:00 00:00:00 Visit [facility]na [id number] [facility] 086906 ty Health 2019-03-09 2019-03-09 Office Morena Woodard LC Encounter/ Legacy 00:00:00 00:00:00 Visit Cassandra DaughertyAdherence,Arelis [id number] [facility] Mary Connell 41246 0 ty Health 2019-02-19 2019-02-19 Emergency E MHSE MHSE [id number] MH 09:54:00 09:54:00 [facility] 2019-01-26 2019-01-26 Office LawCARLEE crabtree L[facility] Encounter/ Legacy 00:00:00 00:00:00 Visit Morena [id number] [facility] 762711 ty Health 2019-01-26 2019-01-26 Office Lawleyda, LC [facility] Encounter/ Legacy 00:00:00 00:00:00 Visit Morena [id number] [facility] 085660 ty Health 2019-01-26 2019-01-26 Office LawMorena crabtree L[facility] Encounter/ Legacy 00:00:00 00:00:00 Visit Richard Landa [id number] [facility] 90958 0 ty Kristina Johnson [facility] 2019-01-20 2019-01-20 Office MATT Noyola Encounter / Legacy 00:00:00 00:00:00 Visit Gilma [id number] Co mmuni 254609 ty Health 2019-01-18 2019-01-18 Office MATT Espinoza Encounte r/ Legacy 00:00:00 00:00:00 Visit Edgard [id number] Com rita 158845 ty Health 2019-01-04 2019-01-04 Office Edgard Espinoza En counter/ Legacy 00:00:00 00:00:00 Visit Elli Pierson [id number] [facility] 03054 0 ty Cathreine Flores Daniela G 2017-12-27 2017-12-27 Office MATT Woodadr LC Encounter/ Legacy 00:00:00 00:00:00 Visit Morena [id number] Communi 193379 ty Health 2017-12-27 2017-12-27 Office MATT Mares Encounter/ Legacy 00:00:00 00:00:00 Visit Melissa [id number] Com rtia 847218 ty [facility] 2017-12-27 2017-12-27 Office Desktop, LBR Care Coordination CARLEE LC Encounter/ Legacy 00:00:00 00:00:00 Visit Morena Woodard [id number] [facility] Jaiden De Souza 702 210 ty Health 2017-12-27 2017-12-27 Office MATT Campbell Encounter / Legacy 00:00:00 00:00:00 Visit Farrukh [id number] Com rita 637404 ty Health 2017-12-27 2017-12-27 Office MATT Woodard Encounter/ Legacy 00:00:00 00:00:00 Visit Morena [id number] Communi 653436 Health 2017-12-27 2017-12-27 Office Desktop, LBR Care Coordination CARLEE LC Encounter/ Legacy 00:00:00 00:00:00 Visit Farrukh Campbell [id number] Morena Woodard 21842 0 ty Caryl Chiang Health 2017-12-24 2017-12-24 Office MATT Campbell LC Encounter / Legacy 00:00:00 00:00:00 [facility] Farrukh [id number] [facility] 365429 [facility] Health 2017-12-24 2017-12-24 Office Vance, CARLEE LC Encounter/ Legacy 00:00:00 00:00:00 Visit Morena [id number] [facility] 160899 ty Health 2017-12-24 2017-12-24 Office Vance, CARLEE LC Encounter/ Legacy 00:00:00 00:00:00 Visit Morena [id number] Commun 166025 ty Health 2017-12-24 2017-12-24 Office Morena Woodard LC Encounter/ Legacy 00:00:00 00:00:00 Visit Farrukh Campbell [id number] [facility] 137051 ty Health 2017-12-20 2017-12-20 Office Lawleyda, CARLEE LC Encounter/ Legacy 00:00:00 00:00:00 Visit Morena [id number] Commun 893567 ty Health 2017-12-20 2017-12-20 Office Lawleyda, [facility] LC Encounter/ Legacy 00:00:00 00:00:00 Visit Morena [id number] [facility] 312788 ty Health 2017-12-20 2017-12-20 Office Morena Woodard [facility] LC Encounter/ Legacy 00:00:00 00:00:00 Visit Melissa Mares [id number] [facility] Edgard Espinoza [id number] Health 2017-11-12 2017-11-12 Outpatient [facility] [id number] [place] 14:42:00 14:42:00 Health 2017-10-21 2017-10-21 Outpatient [facility] [id number] [place] 00:00:00 00:00:00 Health 2017-10-19 2017-10-19 Outpatient [facility] [id number] [place] 18:25:57 18:25:57 Health 2017-10-19 2017-10-19 Outpatient [facility] [id number] [place] 00:00:00 00:00:00 Health 2017-10-19 2017-10-19 Outpatient [facility] [id number] [place] 00:00:00 00:00:00 Health 2017-10-19 2017-10-19 Outpatient [facility] [id number] [place] 00:00:00 00:00:00 Health Results Test Description Test Time Test Comments Results Result Comments Source Syphilis Screen for Infection 2019-10-18 08:24:00 Test Item Value Reference Range Interpretation Comme nts TPA (test code = 19366-9) Negative Negative, Equivocal Final Report (test code = 46411-6) Negative Negative Lab Interpretation (test code = 14078-6) Normal [facility] DNA [id number] 19:04:00 Test Item Value Reference Range Interpretation Comments Chlamydia trachomatis Negative Negative (test code = 19159-4) N. gonorrhoeae (test Negative Negative code = 30491-0) MERCEDES (test code = MERCEDES) This test utilizes [employer] Aptima Combo 2 Assay for target amplification of rRNA for the qualitative detection of Chlamydia trachomatis and Neisseria gonorrhoeae. Lab Interpretation Normal (test code = 30392-6) [facility]atitis [id number] 16:49:00 Test Item Value Reference Range Interpretation Comments Hepatitis C Virus (HCV) Antibody Negative Negative (test code = 37419-6) Hep B Surface Ag (test code = Negative Negative 5196-1) Hep A Vir Ab IgM (test code = Negative Negative 42308-8) Hep B Core Ab IgM (test code = Negative Negative 95274-2) Lab Interpretation (test code = Normal 01658-7) [facility] [id number] 16:38:00 Test Item Value Reference Range Interpretation Comments HIV Ag/Ab Combo (test code = Negative Negative 36471-7) Lab Interpretation (test code = Normal 78324-6) [facility] gon[facility]ae and trichomonas [id number] 19:47:54 Test Item Value Reference Interpretation Comments Range Chlamydia Negative for Specimen trachomatis by Chlamydia InformationSp ecimen PCR (test code = trachomatis. Source: 58724-2) [facility] Site: Endocervi naila Neisseria Negative for gonorrhoeae by Neisseria PCR (test code = gonorrhoeae. 46771-5) Trichomonas Negative for vaginalis by PCR Trichomonas (test code = vaginalis. 86958-0) [facility] MethodistT[facility], [id number] 23:24:17 Test Item Value Reference Range Interpretation Comments T4, free (test code = 3024-7) 1.35 ng/dL 0.9-1.7 [facility] CentersurinderThyroid stimulating [id number] 23:24:17 Test Item Value Reference Range Interpretation Comments TSH (test code = 3016-3) 1.13 0.27- 4.20 uIU/mL [facility] [id number] 23:12:04 Test Item Value Reference Range Interpretation Comments Sodium (test code = 141 135- 148 mEq/L 2951-2) Potassium (test code = 4.0 3.5- 5.0 mEq/L 2823-3) Chloride (test code = 104 98- 112 mEq/L 2074-0) CO2 (test code = 29 24- 31 mEq/L 2027-9) Anion gap (test code = 8@ANIO 7- 15 mEq/L 74370-1) BUN (test code = 11 mg/dL 6-20 3094-0) Creatinine (test code = 0.90 mg/dL 0.5-0.9 2160-0) Glucose (test code = 98 mg/dL 65-99 2345-7) Calcium (test code = 9.5 mg/dL 8.3-10.2 75189-8) Protein (test code = 7.7 g/dL 6.3-8.3 -[place] n 2885-2) 4.6-7.0 g/ dL1 week 4.4-7.6 g/dL7 months-1year 5.1-7.3 g/dL1 -2 years 5.6-7.5 g/dL>3 years 6.0-8.0 g/dL18- 150 6.3-8.3 g/dL Albumin (test code = 4.5 g/dL 3.5-5 1751-7) A/G ratio (test code = 1.4 0.7-3.8 1759-0) Alkaline phosphatase 38 U/L 35-104 (test code = 6768-6) AST (test code = 19 U/L 10-35 1920-8) ALT (test code = 8 U/L 5-50 1742-6) Total bilirubin (test 0.3 mg/dL 0-1.2 code = 1975-2) [place] MethodistSalicylate [id number] 23:12:04 Test Item Value Reference Range Interpretation Comments Salicylate (test code = 4024-6) <3.0 3-30 [facility] MethodistAcetaminophen [id number] 23:12:03 Test Item Value Reference Range Interpretation Comments Acetaminophen level <5.0 10-30 A Therapeu tic (test code = 3298-7) 10-30 u g/mL Possi ble Toxicity 15 0-200 ug/mL Probable [place] >200 ug/mL Lab Interpretation (test Abnormal code = 62893-4) [place] MethodistAlcohol level, [id number] 23:12:03 Test Item Value Reference Range Interpretation Comments Alcohol percent None Detected % Normal (test code = None Detec tedLegal 5643-2) Intoxication in [place] 80 mg/dL (0.08% ) - Whole BloodToxi c Concentration 200 mg/dL (0.2%)Potential ly Fatal 350 - 500 mg/dL (0.35 - 0 .5%) [place] MethodistCreatine kinase, total (CPK)2019-08-23 23:12:03 Test Item Value Reference Range Interpretation Comments Creatine kinase (test code = 2157-6) 176 U/L 26-192 [place] MethodistEstimated [id number] 23:12:03 Test Item Value Reference Range Interpretation Comments Estimated GFR (test 85 mL/min/1.73 m2 Caterg ory Units code = 5488) InterpretationG 1 >=90 Normal or highG2 60-89 Mildly dkjlxwvnuY5l 45-59 Mildly to mode rately qouxhhhcuJ4w 30-44 Moderately to severely decreasedG4 15-29 Severely decre asedG5 <15 Kidn ey failureThe eGFR was calculated brenad monterroso the Chronic Kidney Disease Epidemiology Co llaboration (CKD-EPI) equat ion. Interpretation is based on recommendations of the National Kidney Foundation-Kidn ey Disease Outcomes Qualit y Initiative (NKF-KDOQI) pub lished in 2013. [place] MethodistCBC with platelet and [id number] 22:56:57 Test Item Value Reference Range Interpretation Comments WBC (test code = 72703-8) 6.20 4.50- 11.00 k/uL RBC (test code = 44582-4) 3.93 m/uL 4.2-5.5 L HGB (test code = 718-7) 12.7 g/dL 12-16 HCT (test code = 4544-3) 38.3 % 37-47 MCV (test code = 787-2) 97.5 fL 82-100 MCH (test code = 785-6) 32.3 pg 27-34 MCHC (test code = 786-4) 33.2 g/dL 31-37 RDW - SD (test code = 21692-5) 45.1 fL 37-55 MPV (test code = 41827-3) 10.5 fL 8.8-13.2 Platelet count (test code = 254 150- 400 k/uL 00711-2) Nucleated RBC (test code = 0.00 /100 WBC 23490-9) Neutrophils (test code = 65257-0) 54.1 % 39-69 Lymphocytes (test code = 74775-5) 35.8 % 25-45 Monocytes (test code = 18716-5) 7.3 % 0-10 Eosinophils (test code = 24787-1) 2.3 % 0-5 Basophils (test code = 12894-6) 0.3 % 0-1 Lab Interpretation (test code = Abnormal 10268-7) [place] [facility] drugs of abuse [id number] 22:50:35 Test Item Value Reference Interpretation Comments Range Amphetamine screen, Positive A urine (test code = 3349-8) Methamphetamine Footnote not tested o n current screen, urine (test cartridg e code = 3779-6) Barbiturate screen, Negative urine (test code = 3377-9) Benzodiazepine Negative screen, urine (test code = 3390-2) Cocaine screen, Negative urine (test code = 3397-7) Methadone screen, Footnote not tested on current urine (test code = cartridge 3923-9) Opiates screen, Negative urine (test code = 3879-4) Phencyclidine Negative screen, urine (test code = 3936-2) Tricyclic screen, Negative urine (test code = 31889-2) Cannabinoid screen, Negative Drug scr een minimum urine (test code = concentra tion of 3427-2) detectabilityAm phetamines 1000 ng/mLMethamphet amines 1000 ng/mLBa rbiturates 300 ng/mLBenzodiaze pines 300 ng/mLCo aliza 300 ng/mLMethadone 300 ng/mLOp iates 300 ng/mLPhencyclid ine 25 ng/mLCa nnabinoids 50 ng/mLTricyclics 1000 ng/mLNe gative test results indicat es presumptive evidence of lac kof clinically significant vinny g concentration i n this urine specimen.Positi ve test results are pre sumptive evidence of clinicallysigni ficant drug concentration i n this urine specimen.Testin g performed for medical pur poses only. Lab Interpretation Abnormal (test code = 07418-1) Garrett TaborG qualitative, urine [id number] 22:47:27 Test Item Value Reference Range Interpretation Comments hCG qualitative, Negative Negative [facility] jd stated urine (test code = sensitivi ty of HcG test 2105-04) for serum is >/ = 10 mIU/ml and urine is >/ = 20mIU/ml. Garrett TaborUrine [id number] 22:47:19 Test Item Value Reference Range Interpretation Comments Urine culture (test SEE COMMENT Bacteriu russell screen code = 9777616) negative. [place] MethodistUrinalysis screen and microscopy, with reflex to culture 2019-08-23 22:47:18 Test Item Value Reference Range Interpretation Comments Specimen site (test code = Clean catch 5279791) Color, UA (test code = 5778-6) Straw Appearance, UA (test code = Clear 5767-9) Specific gravity, UA (test code = 1.006 1.001-1.035 5811-5) pH, UA (test code = 5803-2) 7.0 5.0-8.5 Protein, UA (test code = 31590-9) Negative Negative Glucose, UA (test code = 40646-5) Negative Negative Ketones, UA (test code = 2514-8) Negative Negative Bilirubin, UA (test code = Negative Negative 5770-3) Blood, UA (test code = 5794-3) Negative Negative Nitrite, UA (test code = 5802-4) Negative Negative Urobilinogen, UA (test code = Negative <2.0 35585-7) Leukocyte esterase, UA (test code Negative Negative = 5799-2) Epithelial cells, UA (test code = Few Few /HPF 5787-7) Round epithelial cells, UA (test Few 0- 1 /HPF code = 81436-9) WBC, UA (test code = 5821-4) 0-5 0- 4 /HPF RBC, UA (test code = 73426-9) 0-5 0- 5 /HPF Bacteria, UA (test code = Few None seen 67926-0) Yeast, UA (test code = 71285-7) None seen Yeast with pseudohyphae, UA (test None seen code = 60907-4) Garrett Taborbeta HCG, urine, [id number] 09:38:16 Test Item Value Reference Range Interpretation Comments beta HCG, urine, semiquantitative negative (test code = 2106-3) [facility]
--- NOTE | 2019-11-27 13:52 | ER ---
Nurse's Notes [facility] Name: Alexa Sal Age: 29 yrs Sex: Female : 1990 Arrival Date: 11/27/2019 Time: 13:06 Bed 19 Private MD: Diagnosis: Low back pain-chronic;Candidal stomatitis;Candidiasis of vulva and vagina;Acute pharyngitis Presentation: 11/26 13:07 Chief complaint: EMS states: POLICE CALLED EMS TO [facility] FOR POSSIBLE COVID. PT bp STATES BACK PAIN x12 YEARS, BUT WOULD ALSO LIKE TO BE TESTED FOR COVID. Coronavirus screen: At this time, the client does not indicate any symptoms associated with coronavirus-19. Ebola Screen: No symptoms or risks identified at this time. Initial Sepsis Screen: Does the patient meet any 2 criteria? No. Patient's initial sepsis screen is negative. Does the patient have a suspected source of infection? No. Patient's initial sepsis screen is negative. Risk Assessment: Do you want to hurt yourself or someone else? Patient reports no desire to harm self or others. Onset of symptoms is unknown. 13:07 Acuity: SULEIMAN 5 bp 13:07 Method Of Arrival: EMS: [facility] bp Triage Assessment: 13:10 General: Appears in no apparent distress. comfortable, obese, Behavior is cooperative, bp anxious. Pain: Complains of pain in back. EENT: No deficits noted. Neuro: Level of Consciousness is awake, alert, obeys commands, Oriented to person, place, time, situation. Cardiovascular: No deficits noted. Respiratory: No deficits noted. GI: No signs and/or symptoms were reported involving the gastrointestinal system. : No signs and/or symptoms were reported regarding the genitourinary system. Derm: No deficits noted. Musculoskeletal: Circulation, motion, and sensation intact. Range of motion: intact in all extremities. Historical: - Allergies: 13:10 Toradol; bp - Home Meds: 13:10 Clonazepam Oral [Active]; Lexapro Oral [Active]; bp - PMHx: 13:10 chronic back pain; bp - Immunization history:: Adult Immunizations unknown. - Social history:: Smoking status: Patient reports the use of cigarette tobacco products, unknown amount. - Family history:: not pertinent. Screenin:11 Abuse screen: Denies threats or abuse. Denies injuries from another. Nutritional bp screening: No deficits noted. Tuberculosis screening: No symptoms or risk factors identified. Fall Risk None identified. Assessment: 13:11 General: SEE TRIAGE NOTE. Neuro: Gait is steady. bp 14:25 Reassessment: PT D/C HOME AMBULATORY, DX WITH VAGINAL AND ORAL CANDIDIASIS. bp Vital Signs: 13:07 BP 122 / 76; Pulse 99; Resp 17; Temp 97.9; Pulse Ox 98% ; bp 14:25 BP 119 / 81; Pulse 97; Resp 17; Temp 98; Pulse Ox 98% ; bp ED Course: 13:06 Patient arrived in ED. bp 13:07 Rolan Luis MD is Attending Physician. eren 13:08 Triage completed. bp 13:11 Arm band placed on. bp 13:11 Patient has correct armband on for positive identification. Bed in low position. Call bp light in reach. Side rails up X2. 13:46 Dinesh Alicea, RN is Primary Nurse. bp 14:25 No provider procedures requiring assistance completed. Patient did not have IV access bp during this emergency room visit. Administered Medications: 13:55 Drug: DiFLUcan 200 mg Route: PO; bp 14:19 Follow up: Response: No adverse reaction bp 13:55 Drug: Amoxicillin 500 mg Route: PO; bp 14:19 Follow up: Response: No adverse reaction bp Outcome: 13:51 Discharge ordered by . eren 14:25 Discharged to home ambulatory. bp 14:25 Condition: stable 14:25 Discharge instructions given to patient, Instructed on discharge instructions, follow up and referral plans. medication usage, Demonstrated understanding of instructions, follow-up care, medications, Prescriptions given X 3. 14:27 Patient left the ED. bp Signatures: Rolan Luis MD MD cha Peltier, Brian, RN RN bp
--- NOTE | 2019-11-27 13:52 | EDPHYS ---
Physician Documentation [facility] Name: Alexa Sal Age: 29 yrs Sex: Female : 1990 Arrival Date: 11/27/2019 Time: 13:06 Bed 19 Private MD: GAUDENCIO Physician Rolan Luis HPI: 11/26 13:46 This 29 yrs old Female presents to ER via EMS with complaints of Back Pain. eren 13:46 The patient presents with pain that is chronic. The symptoms are located in the low eren back. Onset: The symptoms/episode began/occurred 12 year(s) ago. The pain does not radiate. Associated signs and symptoms: The patient has no apparent associated signs or symptoms. Modifying factors: The patient symptoms are alleviated by nothing, the patient symptoms are aggravated by any movement. 13:48 The patient presents with sore throat, dysphagia. The patient describes throat pain as eren raw, scratchy. Onset: The symptoms/episode began/occurred 2 day(s) ago. The patient presents with urinary symptoms, frequency. Onset: The symptoms/episode began/occurred 2 day(s) ago. Modifying factors: The symptoms are alleviated by nothing, the symptoms are aggravated by nothing. Severity of symptoms: At their worst the symptoms were mild, in the emergency department the symptoms are unchanged. Historical: - Allergies: 13:10 Toradol; bp - Home Meds: 13:10 Clonazepam Oral [Active]; Lexapro Oral [Active]; bp - PMHx: 13:10 chronic back pain; bp - Immunization history:: Adult Immunizations unknown. - Social history:: Smoking status: Patient reports the use of cigarette tobacco products, unknown amount. - Family history:: not pertinent. ROS: 13:48 Constitutional: Negative for fever, chills, and weight loss, Eyes: Negative for injury, eren pain, redness, and discharge, Neck: Negative for injury, pain, and swelling, Cardiovascular: Negative for chest pain, palpitations, and edema, Respiratory: Negative for shortness of breath, cough, wheezing, and pleuritic chest pain, Abdomen/GI: Negative for abdominal pain, nausea, vomiting, diarrhea, and constipation, Back: Negative for injury and pain, MS/Extremity: Negative for injury and deformity, Skin: Negative for injury, rash, and discoloration, Neuro: Negative for headache, weakness, numbness, tingling, and seizure, Psych: Negative for depression, anxiety, suicide ideation, homicidal ideation, and hallucinations, Allergy/Immunology: Negative for hives, rash, and allergies, Endocrine: Negative for neck swelling, polydipsia, polyuria, polyphagia, and marked weight changes, Hematologic/Lymphatic: Negative for swollen nodes, abnormal bleeding, and unusual bruising. 13:48 ENT: Positive for rhinorrhea, sore throat. Exam: 13:48 Constitutional: This is a well developed, well nourished patient who is awake, alert, eren and in no acute distress. Head/Face: Normocephalic, atraumatic. Eyes: Pupils equal round and reactive to light, extra-ocular motions intact. Lids and lashes normal. Conjunctiva and sclera are non-icteric and not injected. Cornea within normal limits. Periorbital areas with no swelling, redness, or edema. Neck: Trachea midline, no thyromegaly or masses palpated, and no cervical lymphadenopathy. Supple, full range of motion without nuchal rigidity, or vertebral point tenderness. No Meningismus. Chest/axilla: Normal chest wall appearance and motion. Nontender with no deformity. No lesions are appreciated. Cardiovascular: Regular rate and rhythm with a normal S1 and S2. No gallops, murmurs, or rubs. Normal PMI, no JVD. No pulse deficits. Respiratory: Lungs have equal breath sounds bilaterally, clear to auscultation and percussion. No rales, rhonchi or wheezes noted. No increased work of breathing, no retractions or nasal flaring. Abdomen/GI: Soft, non-tender, with normal bowel sounds. No distension or tympany. No guarding or rebound. No evidence of tenderness throughout. Back: No spinal tenderness. No costovertebral tenderness. Full range of motion. Skin: Warm, dry with normal turgor. Normal color with no rashes, no lesions, and no evidence of cellulitis. MS/ Extremity: Pulses equal, no cyanosis. Neurovascular intact. Full, normal range of motion. Neuro: Awake and alert, GCS 15, oriented to person, place, time, and situation. Cranial nerves II-XII grossly intact. Motor strength 5/5 in all extremities. Sensory grossly intact. Cerebellar exam normal. Normal gait. Psych: Awake, alert, with orientation to person, place and time. Behavior, mood, and affect are within normal limits. 13:48 ENT: Mouth: Lips: normal, moist, Oral mucosa: normal, pink and intact, Gums: normal with healthy appearance, Tongue: tender, displays thrush, abscess, is not appreciated, Posterior pharynx: Tonsils: with erythema, Uvula: normal, swelling, is not appreciated, erythema, that is mild. Vital Signs: 13:07 BP 122 / 76; Pulse 99; Resp 17; Temp 97.9; Pulse Ox 98% ; bp 14:25 BP 119 / 81; Pulse 97; Resp 17; Temp 98; Pulse Ox 98% ; bp MDM: 13:07 Patient medically screened. [facility] 13:50 Data reviewed: vital signs, nurses notes, lab test result(s), urinalysis. [facility] 11/26 13:59 Order name: Urine Dipstick--Ancillary (enter results) 11/26 13:59 Order name: Urine --Ancillary (enter results) 11/26 13:46 Order name: Urine Dipstick-Ancillary (obtain specimen); Complete Time: 13:55 [facility] 11/26 13:46 Order name: Urine Test (obtain specimen); Complete Time: 13:55 [facility] Administered Medications: 13:55 Drug: DiFLUcan 200 mg Route: PO; bp 14:19 Follow up: Response: No adverse reaction bp 13:55 Drug: Amoxicillin 500 mg Route: PO; bp 14:19 Follow up: Response: No adverse reaction bp Disposition: 11/27/19 13:51 Discharged to Home. Impression: Low back pain - chronic, Candidal stomatitis, Candidiasis of vulva and vagina, Acute pharyngitis. - Condition is Stable. - Discharge Instructions: Back Pain, Adult, Musculoskeletal Pain, Pharyngitis, Thrush, Adult, Vaginal Yeast Infection, Adult, Pharyngitis, Qsqg-cm-Zlbh, Sore Throat, Hizz-yn-Uyur. - Prescriptions for Amoxicillin 500 mg Oral Capsule - take 1 capsule by ORAL route every 8 hours for 10 days; 30 tablet. Diflucan 150 mg Oral Tablet - take 1 tablet by ORAL route one time for 1 day; 1 tablet. Nystatin 100,000 unit/mL Oral Suspension - take 5 milliliter by ORAL route every 6 hours; 120 milliliter. - Medication Reconciliation Form, Thank You Letter, Antibiotic Education, Prescription Opioid Use form. - Follow up: Private Physician; When: 2 - 3 days; Reason: Recheck today's complaints, Continuance of care, Re-evaluation by your physician. - Problem is new. - Symptoms have improved. Signatures: Dispatcher [employer] EDWI Rolan Luis MD MD cha Peltier, Brian, RN RN bp Corrections: (The following items were deleted from the chart) 14:27 13:51 11/27/2019 13:51 Discharged to Home. Impression: Low back pain - chronic; bp Candidal stomatitis; Candidiasis of vulva and vagina; Acute pharyngitis. Condition is Stable. Forms are Medication Reconciliation Form, Thank You Letter, Antibiotic Education, Prescription Opioid Use. Follow up: Private Physician; When: 2 - 3 days; Reason: Recheck today's complaints, Continuance of care, Re-evaluation by your physician. Problem is new. Symptoms have improved. eren
[2019-11-27] MEDS ORDERED: AMOXICILLIN TRIHYDR 250 MG CAP ONE (14:04)
[2019-11-27] MEDS ORDERED: FLUCONAZOLE 100 MG TAB ONE (14:04)
[2019-11-27 14:37] VITALS: O2SAT 98
[2019-11-27 14:38] VITALS: BP 119/81; TEMP 98
[2019-11-27 15:51] LABS: Urine Blood NEGATIVE (NEG); Urine Glucose NEGATIVE (NEG); Urine Protein NEGATIVE (NEG); Urine Specific Gravity 1.025 (1.005-1.030)
== END 2019-11-27 14:27 | disposition home or self-care (01) ==
LOC: ER 13:05
DX: B37.0 Candidal stomatitis (principal); B37.3 Candidiasis of vulva and vagina; J02.9 Acute pharyngitis, unspecified; F17.210 Nicotine dependence, cigarettes, uncomplicated; Z88.5 Allergy status to narcotic agent
CPT/HCPCS: 81003; 81025; 99283

== ENCOUNTER 2019-11-27 19:25 | Emergency (ER) | payer SELFPAY ==
--- OUTSIDE RECORDS SUMMARY | 2019-11-27 19:27 | XMS REPORT | Clinical Summary ---
:1990 Author Organization [facility] Distr ict Address [facility] [place] [address] Care Team Providers Name Role Phone MD [...] urine Narrative Performed At This test utilizes Apptio Aptima Combo 2 Assay for ta rget [facility] amplification of rRNA for the qualitative detection of Chlamydia trachomatis and Neisseria gonorrhoeae. Performing Organization Address [facility] Phone Number [facility] [address] [place] [address] Syphilis Screen for Infection (10/17/2019 10:30 AM CDT) Pathologist Sig nature TPA Negative Negative, Equivocal [facility] Final Report Negative Negative [facility] Specimen Blood Performing Organization Address [facility] Phone Number [facility] [address] [place] [address] HIV Ag/Ab Combo Routine Screening (10/17/2019 10:30 AM CDT) Pathologist Sig nature HIV Ag/Ab Combo Negative Negative [facility] Specimen Blood Performing Organization Address [facility] Phone Number [facility] [address] [place] [address] Hepatitis Panel (10/17/2019 10:30 AM CDT) Pathologist Sig nature Hepatitis C Virus (HCV) Negative Negative [facility] RY Antibody Hep B Surface Ag Negative Negative [facility] Hep A Vir Ab IgM Negative Negative [facility] Hep B Core Ab IgM Negative Negative [facility] Specimen Blood Performing Organization Address City/State/Zipcode Phone Number [facility] [address] [place] [address] after 11/26/2018 Insurance Payer Benefit Plan / Subscriber ID Effective Dates Phone Addre ss Type Group HOMELESS MOJGAN HOMELESS MOJGAN xxxxxxx 2019- [phone] 25 [id number] [address] [place] [address] [phone] (Work) Alexa Brewer Self 1990 [address] (Home) [place], [place] [phone] (Work) Advance Directives Code Status Date Activated Date Inactivated Comments Full Code 10/22/2017 11:10 AM 10/24/2017 5:40 PM Full Code 10/21/2017 4:25 PM 10/22/2017 11:10 AM Full Code 10/19/2017 7:31 PM 10/20/2017 12:09 AM
--- OUTSIDE RECORDS SUMMARY | 2019-11-27 19:27 | XMS REPORT | Clinical Summary ---
:1990 Author Organization [facility] Address [address] [place] [address] Care Team Providers Name Role Phone Asked, No Pcp Primary Care Provider Unavailable Allergies No Known Active Allergies Medications Medication Sig Dispensed Refills Start Date End Date Status Take 1 tablet by 0 Act alden vit,[id number] mouth daily. 29 mg iron- 1 mg [...] 10:48 PM CDT) Estimated GFR 85 mL/min/1.73 [facility] Comment: m2 [facility] Catergory Units Interpretation HOS PITAL G1 >=90 [...] e Number [facility] DEPARTMENT OF PATHOLOGY AND [address] [place] [address] GENOMIC MEDICINE [facility] [address] [place], [place] [address] [facility] CBC with platelet and differential (08/23/2019 10:48 PM CDT) Pathologist Sig nature WBC 6.20 4.50 - 11.00 k/uL [facility] RBC 3.93 (L) 4.20 - 5.50 m/uL [facility] HGB 12.7 12.0 - 16.0 g/dL [facility] HCT 38.3 37.0 - 47.0 % [facility] MCV 97.5 82.0 - 100.0 fL [facility] MCH 32.3 27.0 - 34.0 pg [facility] MCHC 33.2 31.0 - 37.0 g/dL [facility] RDW - SD 45.1 37.0 - 55.0 fL [facility] MPV 10.5 8.8 - 13.2 fL [facility] Platelet count 254 150 - 400 k/uL [facility] Nucleated RBC 0.00 /100 WBC [facility] Neutrophils 54.1 39.0 - 69.0 % [facility] Lymphocytes 35.8 25.0 - 45.0 % [facility] Monocytes 7.3 0.0 - 10.0 % [facility] Eosinophils 2.3 0.0 - 5.0 % [facility] Basophils 0.3 0.0 - 1.0 % [facility] Specimen Blood Performing Organization Address City/[facility] Phon e Number [facility] DEPARTMENT OF PATHOLOGY AND [address] Thyroid stimulating hormone (08/23/2019 10:48 PM CDT) Pathologist Sig nature TSH 1.13 0.27 - 4.20 uIU/mL [facility] Specimen Blood Performing Organization Address City/[facility] Phon e Number [facility] DEPARTMENT OF PATHOLOGY AND [address] T4, free (08/23/2019 10:48 PM CDT) Pathologist Sig nature T4, free 1.35 0.90 - 1.70 ng/dL [facility] Specimen Blood Performing Organization Address City/[facility]/ZIP [facility] Phon e Number [facility] DEPARTMENT OF PATHOLOGY AND [address] Creatine kinase, total (CPK) (08/23/2019 10:48 PM CDT) Pathologist Sig nature Creatine kinase 176 26 - 192 U/L [facility] Specimen Blood Performing Organization Address City/[facility]/ZIP Code Phon e Number [facility] DEPARTMENT OF PATHOLOGY AND [address] Alcohol level, blood (08/23/2019 10:48 PM CDT) Alcohol None Detected mg/dL [facility] Comment: [facility] Normal None Detected [facility] Legal Intoxication in [place] 80 mg/dL (0.08%) - Whole Blood Toxic Concentration 200 mg/dL (0.2%) Potentially Fatal 350 - 500 mg/dL (0. 35 - 0.5%) Alcohol percent None Detected % [facility] Specimen Blood Performing Organization Address [facility] Phon e Number [facility] DEPARTMENT OF PATHOLOGY AND [address] MEDICINE [facility] [address] Acetaminophen level (08/23/2019 10:48 PM CDT) Acetaminophen level <5.0 (A) 10.0 - 30.0 [facility] Comment: ug/mL [facility] Therapeutic 1 0-30 ug/mL [facility] Possible Toxicity 150- 200 ug/mL Probable Toxicity >200 ug/mL Specimen Blood Performing Organization Address [facility] Phon e Number [facility] DEPARTMENT OF PATHOLOGY AND [address] [place], [place] [id number] [place] [address] [address] Salicylate level (08/23/2019 10:48 PM CDT) Pathologist Sig nature Salicylate <3.0 3.0 - 30.0 mg/dL [facility] Specimen Blood Performing Organization Address [facility] Phon e Number [facility] DEPARTMENT OF PATHOLOGY AND [address] [address] [place], [place] [phone] [place] [address] Comprehensive metabolic panel (08/23/2019 10:48 PM CDT) Sodium 141 135 - 148 [facility] mEq/L [facility] Potassium 4.0 3.5 - 5.0 [facility] mEq/L [facility] Chloride 104 98 - 112 [facility] mEq/L [facility] CO2 29 24 - 31 mEq/L [facility] Anion gap 8@ANIO 7 - 15 mEq/L [facility] BUN 11 6 - 20 mg/dL [facility] Creatinine 0.90 0.50 - 0.90 [facility] mg/dL [facility] Glucose 98 65 - 99 mg/dL [facility] Calcium 9.5 8.3 - 10.2 [facility] mg/dL [facility] Protein 7.7 6.3 - 8.3 [facility] Comment: g/dL [facility] [place] 4.6-7.0 g/dL 1 week 4.4-7.6 g/dL 7 months-1year 5.1-7.3 g/dL 1-2 years 5.6-7.5 g/dL >3 years 6.0-8.0 g/dL 18-150 6.3-8.3 g/dL Albumin 4.5 3.5 - 5.0 [facility] g/dL [facility] A/G ratio 1.4 0.7 - 3.8 [facility] Alkaline phosphatase 38 35 - 104 U/L [facility] AST 19 10 - 35 U/L [facility] ALT 8 5 - 50 U/L [facility] Total bilirubin 0.3 0.0 - 1.2 [facility] mg/dL [facility] Specimen Blood Performing Organization Address City/State/ZIP Code Phon e Number [facility] DEPARTMENT OF PATHOLOGY AND [id number] [place] [address] [place] [address] GENOMIC MEDICINE [facility] [address] [place] [address] [place] [address] Urinalysis screen and microscopy, with reflex to culture (08/23/2019 10:01 PM CDT) Specimen site Clean catch [facility] Color, UA Straw [facility] Appearance, UA Clear [facility] Specific gravity, UA 1.006 1.001 - 1.035 [facility] pH, UA 7.0 5.0 - 8.5 [facility] Protein, UA Negative Negative [facility] Glucose, UA Negative Negative [facility] Ketones, UA Negative Negative [facility] Bilirubin, UA Negative Negative [facility] Blood, UA Negative Negative [facility] Nitrite, UA Negative Negative [facility] Urobilinogen, UA Negative <2.0 [facility] Leukocyte esterase, Negative Negative [facility] Epithelial cells, UA Few Few /HPF [facility] Round epithelial Few 0 - 1 /HPF [facility] cells, UA [facility] WBC, UA 0-5 0 - 4 /HPF [facility] RBC, UA 0-5 0 - 5 /HPF [facility] Bacteria, UA Few None seen [facility] Yeast, UA None seen [facility] Yeast with None seen [facility] pseudohyphae, UA [facility] Specimen Urine Performing Organization Address [facility] Phon e Number [facility] DEPARTMENT OF PATHOLOGY AND [id number] [place] [address] [place] [address] [facility] [id number] [place] [address] Chlamydia gonorrhoeae and trichomonas panel (08/23/2019 10:01 PM CDT) Chlamydia Negative for Chlamydia trachomatis. [facility] ON PENTECOSTALISM trachomatis by PCR Comment: HOSPITAL Specimen Information Specimen Source: Endocervical Specimen Site: Endocervical Neisseria Negative for [facility] gonorrhoeae by PCR [facility] gonorrhoeae. Trichomonas Negative for [facility] PENTECOSTALISM vaginalis by PCR Trichomonas HOSPITAL vaginalis. Specimen Endocervical - Endocervical Performing Organization Address City/[facility] Phon e Number [facility] DEPARTMENT OF PATHOLOGY AND [address] [place], [place] [address] [address] hCG qualitative, urine screen (08/23/2019 10:01 PM CDT) hCG qualitative, Negative Negative [facility] urine Comment: [facility] The manufacturers stated sensitivity of HcG test for s migue is >/= 10 HOSPITAL mIU/ml and urine is >/= 20mIU/ml. Specimen Urine Performing Organization Address City/[facility] Phon e Number [facility] DEPARTMENT OF PATHOLOGY AND [address] [place] [address] [facility] [address] [address] [place] [address] [place] [address] Urine drugs of abuse screen (08/23/2019 10:01 PM CDT) Amphetamine screen, Positive (A) [facility] urine PENTECOSTALISM [facility] Methamphetamine FootnoteComment: not [facility] screen, urine tested on current PENTECOSTALISM [facility] Barbiturate screen, Negative [facility] urine [facility] Benzodiazepine Negative [facility] screen, urine PENTECOSTALISM [facility] Cocaine screen, urine Negative [facility] Methadone screen, FootnoteComment: not [facility] urine tested on current PENTECOSTALISM [facility] Opiates screen, urine Negative [facility] Phencyclidine screen, Negative [facility] urine [facility] Tricyclic screen, Negative [facility] urine PENTECOSTALISM [facility] Cannabinoid screen, Negative [facility] urine Comment: [facility] Drug screen minimum concentration of detectability [facility] Amphetamines 1000 ng/mL Methamphetamines 1000 ng/mL Barbiturates [...] purposes only. Specimen Urine Performing Organization Address City/[facility] Phon e Number [facility] DEPARTMENT OF PATHOLOGY AND [address] [place] [address] Urine culture (08/23/2019 10:01 PM CDT) Pathologist Sig nature Urine culture SEE COMMENTComment: [facility] PENTECOSTALISM Bacteriuria screen [facility] negative. Specimen Urine Performing Organization Address City/[facility] Phon e Number [facility] DEPARTMENT OF PATHOLOGY AND [address] [place], [place] [id number] [place] [id number] [place] [address] after 11/26/2018 Advance Directives For more information, please contact: [phone] Type Date Recorded Patient [employer] Explanati on Advance Directives, Living Will 08/23/2019 10:38 PM and Medical Power of Membership Manager
--- OUTSIDE RECORDS SUMMARY | 2019-11-27 19:27 | XMS REPORT ---
:1990 Author Name Messaging, Secure Address Unavailable Unavailable , Care Team Providers Name Role Phone Lawera, Morena Unavailable [phone] PROBLEMS Condition Status Date Provider Notes Panic [...] attack - Ambulatory Morena Lawera UNK Encounter Mornea Lawera Arelis Trujillo [facility], - Ambulatory Jailene [...] Plant derm atitis Encounter Morena Lawera Richard Johsnon - Ambulatory Gilma Noyola UNK Encounter - [...] ranados " respiratory rate E&M 18 /min Edgard Bryan dos " pulse rate 108 /min [...] time of call 12/27/2017 2:14 PM Jaiden carmichael time of call 12/27/2017 1:20 PM Caryl [...] - Psychiat ry New Patient Detailed - 44077 HISTORY OF PROCEDURES Procedure Date Procedure Name Provider Procedure Notes Status Urinalysis - - Morena Woodard completed In House GOALS No Information Available HEALTH CONCERNS No Information Available
--- OUTSIDE RECORDS SUMMARY | 2019-11-27 19:29 | XMS REPORT | Continuity of Care Document ---
:1990 Author Organization [facility] t Address [address] [place] [address] Care Team Providers Name Role Phone Asked, Pcp Primary Care Physician Unavailable Vance Attending Clinician [phone] Shira Attending Clinician [phone] Alex Attending Clinician Unavailable Serafin Attending Clinician Unavailable Shira Attending Clinician Unavailable Vidal Attending Clinician [phone] Tenisha MedAdherharleen Attending Clinician Unavailable Cassandra Isbell, Attending Clinician Unavailable Juan PAUL Attending Clinician Lilo Vasques Attending Clinician Jaime Adams MD Attending Clinician Erika Attending Clinician Unavailable Alexis Attending Clinician Unavailable James Attending Clinician Unavailable Andrea Attending Clinician Unavailable Shabbir MedNamita Attending Clinician Unavailable Hernan MedAdherharleen Attending Clinician [phone] Becki Attending Clinician Unavailable Syeda Attending Clinician [phone] Gabbie Attending Clinician Unavailable Dennys Attending Clinician Unavailable Kenna Attending Clinician [phone] Mango Flores Attending Clinician Unavailable Jillian Brito Attending Clinician Unavailable Vishnu Attending Clinician Unavailable Desktop Attending Clinician [phone] Isabel De Souza Attending Clinician Unavailable Adrian Attending Clinician Unavailable Shree Noyola Attending Clinician Unavailable Vidal Unavailable [phone] Lawera Unavailable [phone] Payers Payer Name Policy Type Policy Number Effective Date Expiration Date S ource HOMELESS xxxxxxx 2019 2020 [place] GRANTHOMELESS 00:00:00 23:59:59 Health [id number] [place] [address] Problems Condition Condition Condition Status Onset Resolution [...] Inactiv 2018-022019-10-24 2019-10-24 Vidal, Legacy dermatitis e 2-12 00:00:00 09:50:49 Catherine Ireland ommunrasheed 00:00: ty 00 Health Allergies, Adverse Reactions, Alerts Allergy Allergy Status Severity Reaction(s) Onset Inactive Treating Comm ents Source Name Type Date Date Clinician No Known DA Active U [facility] Allergie 2-10 Clear s 00:00: Rinaldi 00 [facility] Family History Family Member Diagnosis Comments Start Date Stop Date Source Maternal grandfather Diabetes [place] Scientologist Maternal grandfather Hypertension [place] Scientologist Maternal grandfather Diabetes [facility] Maternal grandmother Hypertension [place] Scientologist Maternal grandmother Stroke [place] Scientologist Maternal grandmother Hypertension [facility] Maternal grandmother Stroke [facility] Natural mother Hypertension [place] Scientologist Natural mother Psychiatry [facility] Natural daughter ADD / ADHD Russell [facility] Paternal grandfather Alcohol/Drug [facility] Paternal grandmother Alcohol/Drug [facility] Natural sister Psychiatry [facility] Social History Social Habit Start Date Stop Date Quantity Comments Source History of tobacco Cigarette Smoker [facility] use Sex Assigned At [facility] sexual orientation 2019-11-24 2019-11-24 Heterosexual [place] [...] of alcohol (finding) Cigarettes smoked 2018-01-11 2018-01-11 [place] current (pack per 00:00:00 00:00:00 Method) - Reported Tobacco use and 2018-01-11 2018-01-11 Never used [place] exposure 00:00:00 00:00:00 Scientologist sex at 2017-12-20 2017-12-20 Female [facility] nity 11:44:29 11:44:29 Health Occupation #1 2017-12-20 2017-12-20 Unemployed [facility] unity 11:44:29 11:44:29 Health patient considered 2017-12-20 2017-12-20 [facility] 11:44:29 11:44:29 Health History [facility] Food 2017-10-13 2017-10-[address] [facility] Worry 00:00:00 00:00:00 History [facility] Food 2017-10-13 2017-10-13 1 [facility] Scarcity 00:00:00 00:00:00 Smoking Status Start Date Stop Date Source [facility] smoked tobacco (finding[facility] every day smoker 2018-07-20 00:00:00 [facility] Medications Ordered Filled Start Stop Current [...] Russell MORALES (FLAGYL) 09-18 and tablet by [facility] 500 mg 00:00: 23:59 vulvovagini mouth 2 tablet 00 :00 tis times daily for 7 days. fluconazole 2019- No Vaginitis 150mg Take 1 [place] (DIFLUCAN) 09-18 and tablet by [facility] 150 mg 00:00: 23:59 vulvovagini mouth once tablet 00 :00 tis for 1 dose. (CLONAZEPAM 2018-02 Yes Morena 1{Table 2xD 0.5 - 1 By Legacy ) 1 MG TABS - Lawera t} Mouth Commu ni 00:00: every 12 ty 00 hours as Health needed for anxiety MEDROL 2018-02 2020- No [place]na use as [place] (METHYLPRED 03-29 Lawera directed C ommuni NISOLONE) 4 00:00: [...] Take 1 [place] SR 8-29 tablet by [facility] (MUCINEX) 00:00: mouth 2 600 mg 00 times extended daily. release tablet throat Yes Common cold 1{lozen 1 Lozenge Wells (CEPACOL 8-29 ge} by [facility] SORE 00:00: Membrane THROAT) 00 route as 15-3.6 mg needed for Lozg Pain. FLUoxetine Yes Take by Santana is (PROZAC) 20 8-10 mouth. Health mg capsule 00:00: 00 terconazole Yes Insert Santana is (TERAZOL 7) 8-08 vaginally. alth 0.4 % 00:00: vaginal 00 cream Yes 1{tbl} QD Take 1 [place] vit,calc76- 8-07 tablet by Met britton iron-folic 23:32: mouth st 29 mg iron- 13 daily. 1 mg tablet per tablet Vital Signs Vital Name Observation Time Observation Value Comments Source blood pressure, 2019-11-24 14:04:02 79 mm[Hg] [facility] diastolic Health blood pressure, 2019-11-24 14:04:02 118 mm[Hg] [facility] systolic Health pulse rate 2019-11-24 14:04:02 82 /min [facility] [employer] weight E&M 2019-11-24 14:04:02 195 [lb_av] [facility] [employer] weight in kilograms 2019-11-24 14:04:02 88.64 kg L [facility] E&M Health temperature E&M 2019-11-24 14:04:02 98.4 [degF] Legac y [facility] Health oxygen saturation, 2019-11-24 14:04:02 98 % [facility] height in 2019-11-24 14:04:02 170.18 [facility] centimeters [facility] Systolic blood 2019-08-24 03:20:00 115 mm[Hg] [place] Scientologist pressure Diastolic blood 2019-08-24 03:20:00 53 mm[Hg] [place] Scientologist pressure Heart rate 2019-08-24 03:20:00 98 /min [place] Scientologist Respiratory rate 2019-08-24 03:20:00 19 /min [place] Scientologist Oxygen saturation in 2019-08-24 03:20:00 100 /min [place] Scientologist Arterial blood by Pulse oximetry Body temperature 2019-08-23 21:55:00 36.67 Sarah [place] Scientologist Body height 2019-08-23 21:55:00 170.2 cm [place] Scientologist Body weight 2019-08-23 21:55:00 78.019 kg [place] Scientologist BMI 2019-08-23 21:55:00 26.94 kg/m2 [place] Scientologist blood pressure, 2019-01-26 09:38:16 70 mm[Hg] Legac y [facility] diastolic Health blood pressure, 2019-01-26 09:38:16 121 mm[Hg] Legac y [facility] systolic Health temperature E&M 2019-01-26 09:38:16 98.0 [degF] Legac y [facility] Health pulse rate 2019-01-26 09:38:16 96 /min [facility] oxygen saturation, 2019-01-26 09:38:16 98 % [facility] weight E&M 2019-01-26 09:38:16 180.13 [lb_av] [facility] weight in kilograms 2019-01-26 09:38:16 81.88 kg L [facility] E[facility]M Health temperature site 2019-01-26 09:38:16 oral L[place] cy [facility] Health height in 2019-01-26 09:38:16 170.18 cm [facility] C ommunity centimeters E&M Health oxygen saturation, 2017-12-20 11:44:29 100 % [facility] blood pressure, 2017-12-20 11:44:29 94 mm[Hg] Legac y [facility] diastolic Health blood pressure, 2017-12-20 11:44:29 136 mm[Hg] Legac y [facility] systolic Health respiratory rate E&M 2017-12-20 11:44:29 18 /min [facility] Health pulse rate 2017-12-20 11:44:29 108 /[facility] temperature E&M 2017-12-20 11:44:29 98.4 [degF] [facility] 2017-12-20 11:44:29 oral Lega cy [facility] Health weight E&M 2017-12-20 11:44:29 172.13 [lb_av] [facility] weight in kilograms 2017-12-20 11:44:29 78.24 kg L [facility] height in 2017-12-20 11:44:29 170.18 cm [facility] centimeters [facility] Procedures Procedure Date / Time Performing Clinician Source Performed CHLAM/GC DNA AMPLI 2019-10-17 13:50:00 Meng Martinez alth HIV AG/AB COMBO ROUTINE 2019-10-17 10:30:00 Meng Martinez is Health SCREENING SYPHILIS SCREEN FOR 2019-10-17 10:30:00 Meng Martinez ealth INFECTION HEPATITIS PANEL 2019-10-17 10:30:00 Meng Martinez h CREATINE KINASE, TOTAL 2019-08-23 22:48:00 Maurilio Adams (CPK) Jaime HC COMPLETE BLD COUNT 2019-08-23 22:48:00 Maurilio Adams W/AUTO DIFF Jaime COMPREHENSIVE METABOLIC 2019-08-23 22:48:00 Napoleon Adams PANEL Jaime T4, FREE 2019-08-23 22:48:00 Maurilio Adamsist Jaime THYROID STIMULATING 2019-08-23 22:48:00 Maurilio Adams HORMONE Jaime ACETAMINOPHEN LEVEL 2019-08-23 22:48:00 Maurilio Adams Jaime SALICYLATE LEVEL 2019-08-23 22:48:00 Maurilio Adamsist Jaime ESTIMATED GFR 2019-08-23 22:48:00 Maurilio Adams Jaime URINE CULTURE 2019-08-23 22:01:00 Maurilio Adams Jaime CHLAMYDIA GONORRHOEAE 2019-08-23 22:01:00 Maurilio Adams AND TRICHOMONAS PANEL Jaime URINALYSIS SCREEN AND 2019-08-23 22:01:00 Maurilio Adams MICROSCOPY, WITH REFLEX Jaime TO CULTURE URINE DRUGS OF ABUSE 2019-08-23 22:01:00 Maurilio Adams Scientologist SCREEN Jaime HCG QUALITATIVE, URINE 2019-08-23 22:01:00 Maurilio Adams SCREEN Jaime Urinalysis - - 2019-01-26 10:11:36 Morena Woodard [facility] In House Health Plan of Care Planned Activity Planned Date Details Comments Source Future Scheduled 2020-05-21 Screening for [facility] Test 00:00:00 malignant neoplasm of cervix (procedure) [code = 908354573] Future Scheduled 2019-11-16 IMM Influenza [facility] Test 00:00:00 Seasonal Oct to April (>/= 19 yrs) [code = IMM Influenza Seasonal Oct to April (>/= 19 yrs)] Future Scheduled 2019-09-16 INFLUENZA VACCINE [place] Scientologist Test 00:00:00 [code = INFLUENZA VACCINE] Future Scheduled 2009 Screening for Tucker Wi thodist Test 00:00:00 malignant neoplasm of cervix (procedure) [code = 104087960] Encounters Start End Encounter Admission Attending Care Care Encounter Source Date/Time Date/Time Type Type Clinicians Facility Department ID 2017-10-21 Inpatient [facility] [id number] H arris 15:24:55 Health 2019-11-24 2019-11-24 Office MATT Woodard [facility] Encounter/ Legacy 00:00:00 00:00:00 Visit Morena [id number] Pavan [id number] ty Health 2019-11-24 2019-11-24 Office Morena Woodard [facility] Encounter/ Legacy 00:00:00 00:00:00 Visit Vandana Silva [id number] Kristina Greenberg [id number] Jonatan Rico [facility] 2019-11-17 2019-11-17 Office Vishnu CARLEEH [facility] En counter/ Legacy 00:00:00 00:00:00 Visit Catherine Drake [id number] [facility] Tenisha MedAdherence Arpit [id number] Health 2019-10-24 2019-10-24 Office MATT Drake [facility] Encounter/ Legacy 00:00:00 00:00:00 Visit Catherine [id number] [facility] rita [id number] [facility] 2019-10-16 2019-10-16 Office LawMorena crabtree [facility] Encounter/ Legacy 00:00:00 00:00:00 Visit Cassandra MedAdherence,, Arelis [id number] [facility] [id number] [facility] 2019-08-23 2019-08-24 [facility] DE BECKER, [facility] [id number] [place] 00:00:00 00:00:00 MAURILIO Beltran [facility] 2019-04-26 2019-04-26 Office Jailene James LC Enco unter/ Legacy 00:00:00 00:00:00 Visit Edgard Espinoza [id number] [facility] Marcia Ramirez [id number] Marcia Mendez [facility] 2019-03-16 2019-03-16 Office MATT Woodard Encounter/ Legacy 00:00:00 00:00:00 Visit Morena [id number] [facility] [id number] [facility] 2019-03-16 2019-03-16 Office Morena Woodard [facility] Encounter/ Legacy 00:00:00 00:00:00 Visit Shabbir DaughertyAdherenceShanna [id number] [facility] Hernan MedAdherenceJailyn [id number] Cassandra MedAdherence,Arelis Health 2019-03-16 2019-03-16 Office MATT WoodardH Encounter/ Legacy 00:00:00 00:00:00 Visit Morena [id number] [facility] [id number] Health 2019-03-15 2019-03-15 Office Morena Woodard [facility] Encounter/ Legacy 00:00:00 00:00:00 Visit Hernan MedAdherenceJailyn [id number] [facility] Tenisha DaughertyAdherenceArpit 199400 ty Health 2019-03-13 2019-03-13 Office Morena Woodard LC Encounter/ Legacy 00:00:00 00:00:00 Visit Shabbir DaughertyAdherenceShanna [id number] Communi 257773 ty Health 2019-03-10 2019-03-10 Office MATT Connell Encounter / Legacy 00:00:00 00:00:00 Visit Mary [id number] ommuni 097766 ty Health 2019-03-09 2019-03-09 Office Morena Woodard LC Encounter/ Legacy 00:00:00 00:00:00 Visit Mary Connell [id number] Communi 569507 ty Health 2019-03-09 2019-03-09 Office MATT Woodard Encounter/ Legacy 00:00:00 00:00:00 Visit Morena [id number] Communi 242903 ty Health 2019-03-09 2019-03-09 Office MATT Woodard LC Encounter/ Legacy 00:00:00 00:00:00 Visit Morena [id number] Communi 085186 ty Health 2019-03-09 2019-03-09 Office Morena Woodard LC Encounter/ Legacy 00:00:00 00:00:00 Visit Cassandra DaughertyAdherharleen,Arelis [id number] [facility] Mary Connell 45200 0 ty Health 2019-02-19 2019-02-19 Emergency E MHSE MHSE 7505 MH 09:54:00 09:54:00 [facility] 2019-01-26 2019-01-26 Office LawCARLEE crabtree [facility] Encounter/ Legacy 00:00:00 00:00:00 Visit Morena [id number] Communi 774025 ty Health 2019-01-26 2019-01-26 Office Lawleyda, MATT [facility] Encounter/ Legacy 00:00:00 00:00:00 Visit Morena [id number] Communi 198080 ty Health 2019-01-26 2019-01-26 Office LawMorena crabtree [facility] Encounter/ Legacy 00:00:00 00:00:00 Visit Richard Landa [id number] [facility] 92215 0 ty Kristina Johnson [facility] 2019-01-20 2019-01-20 Office Dennys, LC [facility] Encounter / Legacy 00:00:00 00:00:00 Visit Gilma [id number] Co mmuni 578102 ty Health 2019-01-18 2019-01-18 Office Espinoza, CARLEE [facility] Encounte r/ Legacy 00:00:00 00:00:00 Visit Edgard [id number] Com rita 758372 ty Health 2019-01-04 2019-01-04 Office EspinozaEdgard [facility] En counter/ Legacy 00:00:00 00:00:00 Visit Elli Pierson [id number] [facility] 74016 0 ty Catherine Flores Daniela G 2017-12-27 2017-12-27 Office Vance, CARLEE [facility] Encounter/ Legacy 00:00:00 00:00:00 Visit Morena [id number] Communi [id number] [facility] 2017-12-27 2017-12-27 Office Vishnu, CARLEE [facility] Encounter/ Legacy 00:00:00 00:00:00 Visit Melissa [id number] Com rita [id number] [facility] 2017-12-27 2017-12-27 Office Desktop, LBR Care Coordination LC [facility] Encounter/ Legacy 00:00:00 00:00:00 Visit Morena Woodard [id number] [facility] Jaiden [facility] 702 210 ty Health 2017-12-27 2017-12-27 Office CARLEE Campbell [facility] Encounter / Legacy 00:00:00 00:00:00 Visit Farrukh [id number] Com rita [id number] [facility] 2017-12-27 2017-12-27 Office CARLEE Woodard [facility] Encounter/ Legacy 00:00:00 00:00:00 Visit Morena [id number] Communi [id number] [facility] 2017-12-27 2017-12-27 Office Desktop, LBR Care Coordination LCH [facility] Encounter/ Legacy 00:00:00 00:00:00 [facility] [id number] 71333 0 ty Caryl Chiang [facility] 2017-12-24 2017-12-24 Office MATT Campbell LC Encounter / Legacy 00:00:00 00:00:00 Visit Farrukh [id number] [facility] 908946 ty Health 2017-12-24 2017-12-24 Office Lawleyda, CARLEE [facility] Encounter/ Legacy 00:00:00 00:00:00 Visit Morena [id number] [facility] 243535 ty Health 2017-12-24 2017-12-24 Office Vance, CARLEE [facility] Encounter/ Legacy 00:00:00 00:00:00 Visit Morena [id number] Commun 466060 ty Health 2017-12-24 2017-12-24 Office Morena Woodard [facility] Encounter/ Legacy 00:00:00 00:00:00 Visit Farrukh Campbell [id number] [facility] 472169 ty Health 2017-12-20 2017-12-20 Office Lawleyda, CARLEE LC Encounter/ Legacy 00:00:00 00:00:00 Visit Morena [id number] Commun 192741 ty Health 2017-12-20 2017-12-20 Office Lawleyda, LC LC Encounter/ Legacy 00:00:00 00:00:00 Visit Morena [id number] Commun 156968 ty Health 2017-12-20 2017-12-20 Office LawMorena crabtree [facility] LC Encounter/ Legacy 00:00:00 00:00:00 Visit Melissa Mares [id number] [facility] Edgard Espinoza [id number] Health 2017-11-12 2017-11-12 Outpatient [facility] [id number] [place] 14:42:00 14:42:00 Health 2017-10-21 2017-10-21 Outpatient [facility] [id number] [place] 00:00:00 00:00:00 Health 2017-10-19 2017-10-19 Outpatient [facility] [id number] [place] 18:25:57 18:25:57 Health 2017-10-19 2017-10-19 Outpatient [facility] [id number] [place] 00:00:00 00:00:00 Health 2017-10-19 2017-10-19 Outpatient [facility] [id number] [place] 00:00:00 00:00:00 Health 2017-10-19 2017-10-19 Outpatient [facility] [id number] Meally 00:00:00 00:00:00 Health Results Test Description Test Time Test Comments Results Result Comments Source Syphilis Screen for Infection 2019-10-18 08:24:00 Test Item Value Reference Range Interpretation Comme nts TPA (test code = 01062-3) Negative Negative, Equivocal Final Report (test code = 64227-2) Negative Negative Lab Interpretation (test code = 43089-7) Normal Meally HealthChlam/Gc DNA [id number] 19:04:00 Test Item Value Reference Range Interpretation Comments Chlamydia trachomatis Negative Negative (test code = 42239-1) N. gonorrhoeae (test Negative Negative code = 26149-2) MERCEDES (test code = MERCEDES) This test utilizes Sonar[employer]me Aptima Combo 2 Assay for target amplification of rRNA for the qualitative detection of Chlamydia trachomatis and Neisseria gonorrhoeae. Lab Interpretation Normal (test code = 85706-6) [facility] [id number] 16:49:00 Test Item Value Reference Range Interpretation Comments Hepatitis C Virus (HCV) Antibody Negative Negative (test code = 44797-0) Hep B Surface Ag (test code = Negative Negative 5196-1) Hep A Vir Ab IgM (test code = Negative Negative 70439-4) Hep B Core Ab IgM (test code = Negative Negative 14643-1) Lab Interpretation (test code = Normal 27066-2) [facility] Combo Routine [id number] 16:38:00 Test Item Value Reference Range Interpretation Comments HIV Ag/Ab Combo (test code = Negative Negative 40869-2) Lab Interpretation (test code = Normal 29313-7) [facility] gon[facility]rhoeae and trichomonas [id number] 19:47:54 Test Item Value Reference Interpretation Comments Range Chlamydia Negative for Specimen trachomatis by Chlamydia InformationSp ecimen PCR (test code = trachomatis. Source: 53149-3) EndocervicalSpe [facility] Site: Endocervi naila Neisseria Negative for gonorrhoeae by Neisseria PCR (test code = gonorrhoeae. 82383-6) Trichomonas Negative for vaginalis by PCR Trichomonas (test code = vaginalis. 60350-7) Garrett MethodistT4, [id number] 23:24:17 Test Item Value Reference Range Interpretation Comments T4, free (test code = 3024-7) 1.35 ng/dL 0.9-1.7 [place] ScientologistThyroid stimulating [id number] 23:24:17 Test Item Value Reference Range Interpretation Comments TSH (test code = 3016-3) 1.13 0.27- 4.20 uIU/mL [facility]inderComprehensive metabolic [id number] 23:12:04 Test Item Value Reference Range Interpretation Comments Sodium (test code = 141 135- 148 mEq/L 2951-2) Potassium (test code = 4.0 3.5- 5.0 mEq/L 2823-3) Chloride (test code = 104 98- 112 mEq/L 2074-0) CO2 (test code = 29 24- 31 mEq/L 2027-9) Anion gap (test code = 8@ANIO 7- 15 mEq/L 55711-5) BUN (test code = 11 mg/dL 6-20 3094-0) Creatinine (test code = 0.90 mg/dL 0.5-0.9 2160-0) Glucose (test code = 98 mg/dL 65-99 2345-7) Calcium (test code = 9.5 mg/dL 8.3-10.2 66624-1) Protein (test code = 7.7 g/dL 6.3-8.3 [...] (test 0.3 mg/dL 0-1.2 code = 1975-2) [place] MethodistSalicylate [id number] 23:12:04 Test Item Value Reference Range Interpretation Comments Salicylate (test code = 4024-6) <3.0 3-30 Tucker MethodistAcetaminophen [id number] 23:12:03 Test Item Value Reference Range Interpretation Comments Acetaminophen level <5.0 10-30 A Therapeu tic (test code = 3298-7) 10-30 u g/mL Possi ble Toxicity 15 0-200 ug/mL Probable [place] >200 ug/mL Lab Interpretation (test Abnormal code = 57142-6) [place] MethodistAlcohol level, [id number] 23:12:03 Test Item Value Reference Range Interpretation Comments Alcohol percent None Detected % Normal (test code = None Detec tedLegal 5643-2) Intoxication in [place] 80 mg/dL (0.08% ) - Whole BloodToxi c Concentration 200 mg/dL (0.2%)Potential ly Fatal 350 - 500 mg/dL (0.35 - 0 .5%) [place] MethodistCreatine kinase, total (CPK)2019-08-23 23:12:03 Test Item Value Reference Range Interpretation Comments Creatine kinase (test code = 2157-6) 176 U/L 26-192 [place] MethodistEstimated [id number] 23:12:03 Test Item Value Reference Range Interpretation Comments Estimated GFR (test 85 mL/min/1.73 m2 [facility] or Units code = 5488) InterpretationG 1 >=90 Normal or highG2 60-89 Mildly afgieyhyhJ3n 45-59 Mildly to mode rately sworxnykeO0p 30-44 Moderately to severely decreasedG4 15-29 Severely decre asedG5 <15 Kidn ey failureThe eGFR was calculated brenda monterroso the Chronic Kidney Disease Epidemiology Co llaboration (CKD-EPI) equat ion. Interpretation is based on recommendations of the National Kidney Foundation-Kidn ey Disease Outcomes Qualit y Initiative (NKF-KDOQI) pub lished in 2013. [place] MethodistCBC with platelet and [id number] 22:56:57 Test Item Value Reference Range Interpretation Comments WBC (test code = 77340-1) 6.20 4.50- 11.00 k/uL RBC (test code = 90919-9) 3.93 m/uL 4.2-5.5 L HGB (test code = 718-7) 12.7 g/dL 12-16 HCT (test code = 4544-3) 38.3 % 37-47 MCV (test code = 787-2) 97.5 fL 82-100 MCH (test code = 785-6) 32.3 pg 27-34 MCHC (test code = 786-4) 33.2 g/dL 31-37 RDW - SD (test code = 97367-3) 45.1 fL 37-55 MPV (test code = 39600-4) 10.5 fL 8.8-13.2 Platelet count (test code = 254 150- 400 k/uL 35101-4) Nucleated RBC (test code = 0.00 /100 WBC 22600-8) Neutrophils (test code = 68031-8) 54.1 % 39-69 Lymphocytes (test code = 23699-0) 35.8 % 25-45 Monocytes (test code = 22215-0) 7.3 % 0-10 Eosinophils (test code = 94005-3) 2.3 % 0-5 Basophils (test code = 27988-0) 0.3 % 0-1 Lab Interpretation (test code = Abnormal 95433-6) [facility] drugs of abuse [id number] 22:50:35 Test Item Value Reference Interpretation Comments [...] on current urine (test code = cartridge 3773-9) Opiates screen, Negative urine (test code = 3879-4) Phencyclidine Negative screen, urine (test code = 3936-2) Tricyclic screen, Negative urine (test code = 03617-0) Cannabinoid screen, Negative Drug scr een minimum [...] only. Lab Interpretation Abnormal (test code = 07217-5) Garrett TaborhCG qualitative, urine [id number] 22:47:27 Test Item Value Reference Range Interpretation Comments hCG qualitative, Negative Negative [facility] centerjaqueline jd stated urine (test code = sensitivi ty of HcG test 2105-04) for serum is >/ = 10 mIU/ml and urine is >/ = 20mIU/ml. Tucker MethodistUrine [id number] 22:47:19 Test Item Value Reference Range Interpretation Comments Urine culture (test SEE COMMENT Bacteriu russell screen code = 7932898) negative. Garrett MethodistUrinalysis screen and microscopy, with reflex to culture 2019-08-23 22:47:18 Test Item Value Reference Range Interpretation Comments Specimen site (test code = Clean catch 9234745) Color, UA (test code = 5778-6) Straw Appearance, UA (test code = Clear 5767-9) Specific gravity, UA (test code = 1.006 1.001-1.035 5811-5) pH, UA (test code = 5803-2) 7.0 5.0-8.5 Protein, UA (test code = 39317-4) Negative Negative Glucose, UA (test code = 10875-3) Negative Negative Ketones, UA (test code = 2514-8) Negative Negative Bilirubin, UA (test code = Negative Negative 5770-3) Blood, UA (test code = 5794-3) Negative Negative Nitrite, UA (test code = 5802-4) Negative Negative Urobilinogen, UA (test code = Negative <2.0 29823-0) Leukocyte esterase, UA (test code Negative Negative = 5799-2) Epithelial cells, UA (test code = Few Few /HPF 5787-7) Round epithelial cells, UA (test Few 0- 1 /HPF code = 66677-7) WBC, UA (test code = 5821-4) 0-5 0- 4 /HPF RBC, UA (test code = 48448-4) 0-5 0- 5 /HPF Bacteria, UA (test code = Few None seen 54302-7) Yeast, UA (test code = 62767-1) None seen Yeast with pseudohyphae, UA (test None seen code = 94023-7) Garrett Methodsurinderbeta HCG, urine, [id number] 09:38:16 Test Item Value Reference Range Interpretation Comments beta HCG, urine, semiquantitative negative (test code = 2106-3) Replaced By [facility]
--- NOTE | 2019-11-27 20:30 | EDPHYS ---
Physician Documentation [facility] Name: Alexa Sal Age: 29 yrs Sex: Female : 1990 Arrival Date: 11/27/2019 Time: 19:26 Bed 28 Private MD: ED Physician David Parra HPI: 11/26 20:36 This 29 yrs old Female presents to ER via Ambulatory with complaints of kb vaginal problem, Medication Refill. 20:36 The patient's rash thought to be caused by folliculitis. The rash is located on the kb groin. The rash can be described as papular. Onset: The symptoms/episode began/occurred today. Associated signs and symptoms: Pertinent positives: None. Severity of symptoms: At their worst the symptoms were moderate in the emergency department the symptoms are unchanged. The patient has not experienced similar symptoms in the past. The patient has not recently seen a physician. "I've had folliculitis for a long time and it is irritated right now. I came earlier and the dr said he was going to give me information for the [facility] and a bus pass, but he never came back so I wanted to get that. I also have a sore throat.". 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 - Social history:: Smoking status: Patient reports the use of cigarette tobacco products, smokes one-half pack cigarettes per day. ROS: 20:36 Constitutional: Negative for fever, chills, and weight loss, Cardiovascular: Negative kb for chest pain, palpitations, and edema, Respiratory: Negative for shortness of breath, cough, wheezing, and pleuritic chest pain, Abdomen/GI: Negative for abdominal pain, nausea, vomiting, diarrhea, and constipation, Back: Negative for injury and pain, MS/Extremity: Negative for injury and deformity, Neuro: Negative for headache, weakness, numbness, tingling, and seizure. 20:36 ENT: Positive for sore throat. 20:36 Skin: Positive for rash. Exam: 20:36 Constitutional: This is a well developed, well nourished patient who is awake, alert, kb and in no acute distress. Head/Face: Normocephalic, atraumatic. ENT: Nares patent. No nasal discharge, no septal abnormalities noted. Tympanic membranes are normal and external auditory canals are clear. Oropharynx with no redness, swelling, or masses, exudates, or evidence of obstruction, uvula midline. Mucous membranes moist. Neck: Trachea midline, no thyromegaly or masses palpated, and no cervical lymphadenopathy. Supple, full range of motion without nuchal rigidity, or vertebral point tenderness. No Meningismus. Chest/axilla: Normal chest wall appearance and motion. Nontender with no deformity. No lesions are appreciated. Cardiovascular: Regular rate and rhythm with a normal S1 and S2. No gallops, murmurs, or rubs. Normal PMI, no JVD. No pulse deficits. Respiratory: Lungs have equal breath sounds bilaterally, clear to auscultation and percussion. No rales, rhonchi or wheezes noted. No increased work of breathing, no retractions or nasal flaring. Abdomen/GI: Soft, non-tender, with normal bowel sounds. No distension or tympany. No guarding or rebound. No evidence of tenderness throughout. MS/ Extremity: Pulses equal, no cyanosis. Neurovascular intact. Full, normal range of motion. Neuro: Awake and alert, GCS 15, oriented to person, place, time, and situation. Cranial nerves II-XII grossly intact. Motor strength 5/5 in all extremities. Sensory grossly intact. Cerebellar exam normal. Normal gait. 20:36 Skin: rash a mild rash is noted, rash can be described as papular, on the groin. Vital Signs: 19:45 BP 105 / 68; Pulse 90; Resp 15 S; Temp 97.2(TE); Pulse Ox 100% on R/A; Weight 86.18 kg ca1 (R); Height 5 ft. 7 in. (170.18 cm) (R); Pain 0/10; 19:45 Body Mass Index 29.76 (86.18 kg, 170.18 cm) ca1 MDM: 20:23 Patient medically screened. kb 20:36 Data reviewed: vital signs, nurses notes. Data interpreted: Pulse oximetry: on room air kb is 100 %. Interpretation: normal. Counseling: I had a detailed discussion with the patient and/or guardian regarding: the historical points, exam findings, and any diagnostic results supporting the discharge/admit diagnosis, the need for outpatient follow up, a family practitioner, to return to the emergency department if symptoms worsen or persist or if there are any questions or concerns that arise at home. 20:39 ED course: chlorhexidine given for daily use until folliculitis resolves. kb Administered Medications: No medications were administered Disposition: 11/27 05:35 Co-signature as Attending Physician, David Parra MD. mh7 Disposition: 11/27/19 20:30 Discharged to Home. Impression: Acute pharyngitis, Folliculitis. - Condition is Stable. - Discharge Instructions: Sore Throat, [id number]. - Medication Reconciliation Form, Thank You Letter, Antibiotic Education, Prescription Opioid Use form. - Follow up: Emergency Department; When: As needed; Reason: Worsening of condition. Follow up: Private Physician; When: 2 - 3 days; Reason: Recheck today's complaints, Continuance of care, Re-evaluation by your physician. - Notes: Use chlorahexadine soap provided daily. Signatures: Marlen Bower, CHRISTINA-C DOUBLE CUT SAWYER-Roger Nazario RN RN jd3 Mica Aragon RN RN ca1 David Parra MD MD mh7 Corrections: (The following items were deleted from the chart) 11/26 21:41 20:30 11/27/2019 20:30 Discharged to Home. Impression: Acute pharyngitis; Folliculitis. jd3 Condition is Stable. Forms are Medication Reconciliation Form, Thank You Letter, Antibiotic Education, Prescription Opioid Use. Follow up: Emergency Department; When: As needed; Reason: Worsening of condition. Follow up: Private Physician; When: 2 - 3 days; Reason: Recheck today's complaints, Continuance of care, Re-evaluation by your physician. kb
--- NOTE | 2019-11-27 20:30 | ER ---
Nurse's Notes [facility] Name: Alexa Sal Age: 29 yrs Sex: Female : 1990 Arrival Date: 11/27/2019 Time: 19:26 Bed 28 Private MD: Diagnosis: Acute pharyngitis;Folliculitis Presentation: 11/26 19:45 Chief complaint: Patient states: "I need more rest and sleep, I have no where to go. I ca1 was here earlier today. I also have folliculitis on my upper inner thigh". Denies pain. Coronavirus screen: Client denies travel out of the [place] in the last 14 days. At this time, the client does not indicate any symptoms associated with coronavirus-19. Ebola Screen: Patient negative for fever greater than or equal to 101.5 degrees Fahrenheit, and additional compatible Ebola Virus Disease symptoms Patient denies exposure to infectious person. Patient denies travel to an Ebola-affected area in the 21 days before illness onset. No symptoms or risks identified at this time. Initial Sepsis Screen: Does the patient meet any 2 criteria? No. Patient's initial sepsis screen is negative. Does the patient have a suspected source of infection? No. Patient's initial sepsis screen is negative. Risk Assessment: Do you want to hurt yourself or someone else? Patient reports no desire to harm self or others. Onset of symptoms was November 27, 2019. 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 - Social history:: Smoking status: Patient reports the use of cigarette tobacco products, smokes one-half pack cigarettes per day. Screenin:25 Abuse screen: Denies threats or abuse. Nutritional screening: No deficits noted. jd3 Tuberculosis screening: No symptoms or risk factors identified. Fall Risk Ambulatory Aid- None/Bed Rest/Nurse Assist (0 pts). Gait- Normal/Bed Rest/Wheelchair (0 pts) Mental Status- Oriented to own ability (0 pts). Total Landon Fall Scale indicates No Risk (0-24 pts). Assessment: 20:24 General: Appears in no apparent distress. uncomfortable, Behavior is calm, cooperative, jd3 appropriate for age, Reports sleeplessness. Pain: Complains of pain in medial aspect of left thigh Quality of pain is described as tender. Neuro: Level of Consciousness is awake, alert, obeys commands, Oriented to person, place, time, situation. Cardiovascular: Denies chest pain, Capillary refill < 3 seconds Patient's skin is warm and dry. Respiratory: Airway is patent Respiratory effort is even, unlabored, Respiratory pattern is regular, symmetrical, Denies cough, shortness of breath. GI: No signs and/or symptoms were reported involving the gastrointestinal system. : No signs and/or symptoms were reported regarding the genitourinary system. EENT: No signs and/or symptoms were reported regarding the EENT system. Derm: Skin is intact, Skin is dry, Skin is normal, Skin temperature is warm Reports folliculitis to left inner thigh. Musculoskeletal: Circulation, motion, and sensation intact. Range of motion: intact in all extremities. 20:26 Reassessment: provider at bedside. jd3 21:14 Reassessment: Patient appears in no apparent distress at this time. Patient and/or jd3 family updated on plan of care and expected duration. Pain level reassessed. Patient is alert, oriented x 3, equal unlabored respirations, skin warm/dry/pink. awaiting bus pass for pt discharge. 21:40 Reassessment: Patient appears in no apparent distress at this time. Patient and/or jd3 family updated on plan of care and expected duration. Pain level reassessed. Patient is alert, oriented x 3, equal unlabored respirations, skin warm/dry/pink. even and steady gait upon discharge, pt reported understanding of discharge instructions. Vital Signs: 19:45 BP 105 / 68; Pulse 90; Resp 15 S; Temp 97.2(TE); Pulse Ox 100% on R/A; Weight 86.18 kg ca1 (R); Height 5 ft. 7 in. (170.18 cm) (R); Pain 0/10; 19:45 Body Mass Index 29.76 (86.18 kg, 170.18 cm) ca1 ED Course: 19:26 Patient arrived in ED. am2 19:39 [facility]ower [facility] kb 19:39 David Parra MD is Attending Physician. kb 19:47 Triage completed. ca1 19:48 Arm band placed on right wrist. ca1 20:20 Roger Stratton, RN is Primary Nurse. jd3 20:26 Patient has correct armband on for positive identification. Bed in low position. Call jd3 light in reach. Side rails up X 1. Pulse ox on. NIBP on. 21:15 No provider procedures requiring assistance completed. Patient did not have IV access jd3 during this emergency room visit. Administered Medications: No medications were administered Outcome: 20:30 Discharge ordered by . kb 21:40 Discharged to home ambulatory. jd3 21:40 Condition: stable 21:40 Discharge instructions given to patient, Instructed on discharge instructions, follow up and referral plans. Demonstrated understanding of instructions, follow-up care. 21:41 Patient left the ED. jd3 Signatures: Marlen Bower FNP-C FNP-Laura Sexton am2 Roger Stratton, RN RN jd3 Mica Aragon RN RN ca1
[2019-11-27 22:56] VITALS: BP 105/68; TEMP 97.2; O2SAT 100
== END 2019-11-27 21:41 | disposition home or self-care (01) ==
LOC: ER 19:25
DX: L73.9 Follicular disorder, unspecified (principal); F17.210 Nicotine dependence, cigarettes, uncomplicated; Z88.5 Allergy status to narcotic agent
CPT/HCPCS: 99283